=== PATIENT | female | born 1945 | race Caucasian/White ===

== ENCOUNTER 2020-05-19 20:14 | Emergency (ER) | payer MEDICARE, SELFPAY ==
[2020-05-19 20:19] VITALS: BP 208/82; PULSE 62; RESP 16; O2SAT 97
--- NOTE | 2020-05-19 20:29 | CTR_ITS ---
PROCEDURE INFORMATION: Exam: CT Head Without Contrast Exam date and time: 05/19/2020 8:54 PM Age: 74 years old Clinical indication: Injury or trauma; Fall; Blunt trauma (contusions or hematomas); Injury details: PT fell 4 x, bruising to lt orbit; Additional info: Falls TECHNIQUE: Imaging protocol: Computed tomography of the head without contrast. Radiation optimization: All CT scans at this facility use at least one of these dose optimization techniques: automated exposure control; mA and/or kV adjustment per patient size (includes targeted exams where dose is matched to clinical indication); or iterative reconstruction. COMPARISON: No relevant prior studies available. RADIATION DOSE METRICS: Total DLP (mGy-cm): 814.81 FINDINGS: Brain: No intracranial hemorrhage. There is mild cerebral atrophy. There is mild diffuse heterogeneity of the white matter attenuation, consistent with chronic white matter ischemic changes. No midline shift of brain. No intracranial mass. Chiu matter and white matter differentiation is preserved. Cerebral ventricles: No ventriculomegaly. Bones/joints: The no acute fractures. Paranasal sinuses: There is complete opacification of left maxillary sinus, left sphenoid sinus, left frontal sinus and most of the left ethmoid air cells. Mucoperiosteal thickening around the left maxillary sinus. Mastoid air cells: Visualized mastoid air cells are well aerated. Soft tissues: Small right posterior scalp hematoma. CT/CT head wo con* [id number] IMPRESSION: 1. Negative for acute intracranial injury. 2. Nonspecific diffuse left-sided paranasal sinus disease. 3. Small right posterior scalp hematoma. Radiation Dose CTDIVOL = (mGy): DLP = 814.81 (mGy-cm)
--- NOTE | 2020-05-19 20:29 | XRR_ITS ---
PROCEDURE INFORMATION: Exam: XR Left Humerus Exam date and time: 05/19/2020 8:31 PM Age: 74 years old Clinical indication: Injury or trauma; Blunt trauma (contusions or hematomas); Arm, upper; Left; Injury details: Multiple falls TECHNIQUE: Imaging protocol: XR Left humerus Views: 2 or more views. COMPARISON: No relevant prior studies available. FINDINGS: Bones/joints: Acute transversely oriented severely displaced overriding fracture of the humeral neck seen proximally. Osteoporosis. Moderate arthritis of acromioclavicular joint. Soft tissues: Soft tissues are not well assessed. XR/[place] [id number] IMPRESSION: Acute proximal left humeral neck fracture.
--- NOTE | 2020-05-19 20:30 | ECG_ITS ---
[facility] Test Date: 2020-05-19 Pat Name: Ana Butterfield Department: Room: Gender: Female Shield Operator: : 1945 Requested By: Rik Bell Order Number: [id number] Santa MD: Nikki Washington M.D. Measurements Intervals [place] Rate: 63 P: 43 [place]: 159 QRS: 6 QRSD: 94 T: 58 QT: 409 QTc: 419 Interpretive Statements SINUS RHYTHM LEFT VENTRICULAR HYPERTROPHY AND ST-T CHANGE [VOLTAGE CRITERIA PLUS ST/T ABNORMALITY] Compared to ECG 01/15/2019 06:36:45 ST (T wave) deviation now present Sinus bradycardia no longer present Electronically Signed On 05-19-2020 22:06:07 RECEIVING SPECIALIST by Nikki Washington M.D. [id number]
--- NOTE | 2020-05-19 20:32 | XRR_ITS ---
PROCEDURE INFORMATION: Exam: XR Left Ribs with PA Chest, 3 Views Exam date and time: 05/19/2020 8:45 PM Age: 74 years old Clinical indication: Injury or trauma; Rib area, left side; Blunt trauma; Injury details: Multiple falls; Additional info: Fall injury TECHNIQUE: Imaging protocol: XR Left ribs 3 views with PA chest. COMPARISON: No relevant prior studies available. FINDINGS: Lungs: Unremarkable. No consolidation. Pleural spaces: Unremarkable. No pleural effusion. No pneumothorax. Heart/Mediastinum: Unremarkable. No cardiomegaly. Bones/joints: Left proximal humeral neck fracture. Osteoporosis. No acute rib fractures identified. XR/XR ribs LT mn 3V w CXR1V [id number] IMPRESSION: 1. No acute pulmonary disease. 2. Left proximal humeral neck fracture.
--- NOTE | 2020-05-19 20:32 | ED_ITS ---
HPI - Fall General: Chief Complaint: Fall Stated Complaint: FALL Time Seen by Provider: 05/19/20 20:23 Source: patient Mode of arrival: ambulatory Limitations: no limitations History of Present Illness: HPI Narrative: 74-year-old female comes in today with injury symptoms were sustained from a fall on Friday. Spouse states that he has been unable to get the patient up today. Patient has had 3 other falls since the fall on Friday. Patient is alert and oriented. Patient appears well. Patient appears no acute distress. Patient is unable to lift left arm due to pain. Patient has obvious bruising and tenderness to the left shoulder area. No acute distress is noted. Review of Systems General: Reports: 10 or more systems reviewed and unremarkable except in HPI and below Musc: Reports: extremity pain Physical Exam Const: COMMON NORMALS: no acute distress and patient oriented x3 GENERAL APPEARANCE: cooperative HENMT: COMMON NORMALS: TM's normal bilaterally and Normal external nose present HEAD & SCALP: normal to inspection and other (Mild flattening to the labial fold on the left side of face.) NOSE: Normal external nose present TYMPANIC MEMBRANE: TM's normal bilaterally MOUTH: Normal oral and palatal mucosa present THROAT: posterior oropharynx normal Eye: GENERAL EYE: appearance normal, both eyes and all related structures Neck/C-Spine: COMMON NORMALS: full ROM Lymph: LYMPHATIC: no lymphadenopathy noted Chest: COMMONS NORMALS: normal inspection of the chest Resp: COMMON NORMALS: normal respiratory effort EFFORT & INSPECTION: Yes able to speak in complete sentences Cardio: COMMON NORMALS: regular rate and regular rhythm RATE: regular rate RHYTHM: regular rhythm GI: COMMON NORMALS: non-tender : COMMON NORMALS: Yes no CVA tenderness BLADDER/KIDNEY EXAM: Yes no CVA tenderness Back/Pelvis: COMMON NORMALS: no CVA tenderness and thoracic and lumbar spine normal to inspection Extremity: NARRATIVE EXTREMITY EXAM: Tenderness to the left shoulder area, ecchymosis is noted to the upper left arm, tenderness noted to left rib area. Neuro: COMMON NORMALS: patient oriented x3, moves all extremities and gait normal (Unable to assess due to generalized weakness.) Psych: COMMON NORMALS: mental status grossly normal and cooperative Skin: COMMON NORMALS: no rashes or lesions noted GENERAL SKIN EXAM: no rashes or lesions noted Course ED course: 1021, reviewed patient with Dr. Veliz. Discussed history of weakness over the last 2 weeks and frequent falls with 4 falls over the last 2 weeks. Review of labs note that patient has some chronic anemia, chronic kidney disease, and some elevation in her troponin. We believe the troponin elevation may be secondary to chronic kidney disease. Patient does have a fracture of the humeral neck. We will plan at this time to recheck troponin and consider released to home if patient is able to standing and transferring. Patient spouse does report the patient has had increased difficulty with standing due to weakness in the lower extremities. Vital Signs: Vital signs: Vital Signs Pulse Rate 66 05/19/20 23:46 Respiratory Rate 16 05/19/20 23:46 Blood Pressure 211/76 05/19/20 23:46 Pulse Oximetry 98 05/19/20 23:46 MDM - Fall MDM Narrative: Medical decision making narrative: Patient comes in for evaluation of a fall on Friday. Patient is also had some increasing weakness over the last 2 weeks. On exam patient has some ecchymosis and tenderness to the left upper arm. Patient has reduced motion to the arm due to pain. No obvious dislocation is noted. Patient also has some chest wall tenderness on the left side. Abdomen soft nontender. Skin is warm and dry. Patient also has some vertebral tenderness in the L1-L2 area of the spine. Differential diagnosis includes fracture, contusions, sprain, chronic kidney disease, deteriorating condition, ACS, stroke. CT of the head noted no acute abnormality. Chest x-ray with left ribs noted no fracture or acute respiratory illness. X-ray of the left humerus notes a neck fracture. CT of the lumbar and thoracic spine noted no acute fractures. Laboratory values noted some anemia, chronic kidney disease that was not significantly changed from previous labs done. Troponin at the 1 and 2-hour ian were unchanged. Feel the patient is weakness is probably due to her chronic kidney disease that is continuing to progress. Patient will need to follow-up with orthopedics regarding her fracture of the humerus. Patient was placed in a sling given medications for pain. Discussed with the need for follow-up with Dr. Morris regarding the patient's worsening weakness. Patient may have further decline of condition may need admission to senior living or long-term for strengthening. Patient and family both report understanding of care plan and need for follow-up or return to the ER. Lab Data: Labs: Lab Results 05/19/20 05/19/20 05/19/20 Range/Units 21:25 21:25 21:25 WBC 10.9 H (4.0-10.0) 10^3/ uL RBC 3.21 L (4.1-5.3) 10^6/u L Hgb 9.3 L (11.5-15.3) g/dL Hct 27.6 L (37.0-47.0) % MCV 86.0 (81-99) fL MCH 29.0 (28.0-34.0) pg MCHC 33.7 (30.0-36.0) g/dL RDW 13.2 (12.1-15.1) % Plt Count 286 (130-400) 10^3/c mm MPV 10.8 H (7.4-10.4) fL Neut % (Auto) 85.3 % Lymph % (Auto) 6.7 % Lake % (Auto) 6.3 % Eos % (Auto) 0.7 % Baso % (Auto) 0.5 % Neut # (Auto) 9.33 H (1.8-7.7) 10^3/u L Lymph # (Auto) 0.7 L (0.8-4.8) 10^3/u L Lake # (Auto) 0.7 (0.2-0.9) 10^3/u L Eos # (Auto) 0.1 (0.0-0.8) 10^3/u L Baso # (Auto) 0.1 (0.0-0.1) 10^3/u L Nucleated RBC % (a uto) 0 % Nucleated RBCs # 0.0 /100WBC Sodium 130 L (136-145) mmol/L Potassium 4.0 (3.5-5.1) mmol/L Chloride 90 L (98-107) mmol/L Carbon Dioxide 24 (22-29) mmol/L Anion Gap 20.0 H (5-19) BUN 44 H (8-23) mg/dL Creatinine 1.8 H (0.5-0.9) mg/dL GFR Calculation Not Reportable Glucose 123 H (65-115) mg/dL Calculated Osmolal ity 283 L (285-295) mOsm/k g Calcium 9.5 (8.5-10.5) mg/dL Magnesium 1.6 L (1.7-2.3) mg/dL Total Bilirubin 0.3 (0.15-1.2) mg/dL AST 19 (0-32) U/L ALT 14 (0-33) U/L Alkaline Phosphata se 102 (35-105) IU/L Troponin T Baselin e 49 H (0-10) ng/L Troponin T 120 Min viejas (0-10) ng/L Delta Troponin T (0-10) ABS# Total Protein 6.4 L (6.6-8.7) g/dL Albumin 4.1 (3.5-5.2) g/dL Globulin 2.3 (1.3-4.6) g/dL Urine Color (Yellow) Urine Appearance (CLEAR) Urine pH (5-7) Ur Specific Gravit y (1.005-1.030) Urine Protein (Negative) Urine Glucose (UA) (Normal) Urine Ketones (Negative) Urine Blood (Negative) Urine Nitrate (Negative) Urine Bilirubin (Negative) Urine Urobilinogen (Negative) mg/dL Ur Leukocyte Amber ase (Negative) Urine RBC (0-2) /hpf Urine WBC (0-5) /hpf Ur Squamous Epith Cells (0-5) /hpf Amorphous Sediment Urine Bacteria (NONE) /hpf 05/19/20 05/19/20 Range/Units 23:04 23:48 WBC (4.0-10.0) 10^3/ uL RBC (4.1-5.3) 10^6/u L Hgb (11.5-15.3) g/dL Hct (37.0-47.0) % MCV (81-99) fL MCH (28.0-34.0) pg MCHC (30.0-36.0) g/dL RDW (12.1-15.1) % Plt Count (130-400) 10^3/c mm MPV (7.4-10.4) fL Neut % (Auto) % Lymph % (Auto) % Lake % (Auto) % Eos % (Auto) % Baso % (Auto) % Neut # (Auto) (1.8-7.7) 10^3/u L Lymph # (Auto) (0.8-4.8) 10^3/u L Lake # (Auto) (0.2-0.9) 10^3/u L Eos # (Auto) (0.0-0.8) 10^3/u L Baso # (Auto) (0.0-0.1) 10^3/u L Nucleated RBC % (a uto) % Nucleated RBCs # /100WBC Sodium (136-145) mmol/L Potassium (3.5-5.1) mmol/L Chloride (98-107) mmol/L Carbon Dioxide (22-29) mmol/L Anion Gap (5-19) BUN (8-23) mg/dL Creatinine (0.5-0.9) mg/dL GFR Calculation Glucose (65-115) mg/dL Calculated Osmolal ity (285-295) mOsm/k g Calcium (8.5-10.5) mg/dL Magnesium (1.7-2.3) mg/dL Total Bilirubin (0.15-1.2) mg/dL AST (0-32) U/L ALT (0-33) U/L Alkaline Phosphata se (35-105) IU/L Troponin T Baselin e (0-10) ng/L Troponin T 120 Min viejas 45.10 H (0-10) ng/L Delta Troponin T -3.90 L (0-10) ABS# Total Protein (6.6-8.7) g/dL Albumin (3.5-5.2) g/dL Globulin (1.3-4.6) g/dL Urine Color Yellow (Yellow) Urine Appearance Clear (CLEAR) Urine pH 5 (5-7) Ur Specific Gravit y 1.010 (1.005-1.030) Urine Protein 2+ H (Negative) Urine Glucose (UA) Norm (Normal) Urine Ketones Negative (Negative) Urine Blood 2+ H (Negative) Urine Nitrate Negative (Negative) Urine Bilirubin Neg (Negative) Urine Urobilinogen Norm (Negative) mg/dL Ur Leukocyte Amber ase Negative (Negative) Urine RBC 0-4 H (0-2) /hpf Urine WBC 15-25 H (0-5) /hpf Ur Squamous Epith Cells 5-10 H (0-5) /hpf Amorphous Sediment Not Reportable Urine Bacteria Trace (NONE) /hpf EKG Data^: EKG 1: Attestation: I personally reviewed and interpreted this EKG as follows: (2120, EKG shows sinus rhythm without any ST elevation or ectopy. Computer reads some left ventricular hypertrophy. No prior exam is available immediately for comparison.) Discharge Plan Discharge Patient Disposition: Home Clinical Impression: Fracture of humerus neck Qualifiers: Encounter type: initial encounter Fracture type: closed Laterality: left Qualified Code(s): S42.212A - Unspecified displaced fracture of surgical neck of left humerus, initial encounter for closed fracture CKD (chronic kidney disease) Qualifiers: Chronic kidney disease stage: unspecified stage Qualified Code(s): N18.9 - Chronic kidney disease, unspecified Condition: Stable Prescriptions: [place] 5-325 mg tablet 1 tab PO Q6H PRN (Reason: pain) Qty: 14 RF: 0 No Action furosemide 40 mg tablet 40 mg PO DAILY@1000 RF: 0 naproxen 375 mg tablet 375 mg PO TID PRN (Reason: Pain) RF: 0 metoprolol tartrate 100 mg tablet 100 mg PO BID@1000,1700 RF: 0 triamcinolone acetonide 0.1 % cream See Rx Instructions .ROUTE .COMPLEX RF: 0 potassium chloride 20 mEq tablet,ER particles/crystals 20 meq PO BID@1000,1700 RF: 0 gabapentin 800 mg tablet 800 mg PO DAILY@1000,1700 RF: 0 pantoprazole 40 mg tablet,delayed release (DR/EC) 40 mg PO DAILY@1000 RF: 0 betamethasone dipropionate 0.05 % Cream See Rx Instructions .ROUTE .COMPLEX RF: 0 lisinopril-hydrochlorothiazide 20-25 mg tablet 1 tab PO DAILY@1000 RF: 0 bupropion HCl 150 mg tablet extended release 24 hr 150 mg PO DAILY@1000 RF: 0 Prevagan See Rx Instructions .ROUTE .COMPLEX RF: 0 Discharge Orders: Discharge ED (Routine); Ordered 05/20/20 Ordered By: Rik Gonzalez Referrals: Víctor Morris MD [Primary Care Provider] - Discharge Diet: Usual diet Discharge Activity: Increase activity as tolerated Activity Restrictions/Additional Instructions: Sling left arm for comfort. Activity as tolerated. Continue with routine medications as directed. Follow-up with primary care as needed. Follow-up with orthopedist for further care of fracture of the arm. Return to the emergency department for new concerns. Coding Level of Care Code ED Employment Case Manager for Lillian Cabrera Exam Comprehensive
[2020-05-19 21:19] VITALS: BP 221/71; PULSE 63; RESP 16; O2SAT 99
[2020-05-19 21:32] LABS: Basophils # 0.1 10^3/uL (0.0-0.1); Basophils % 0.5 %; Eosinophils # 0.1 10^3/uL (0.0-0.8); Eosinophils % 0.7 %; Hematocrit 27.6 % (37.0-47.0); Hemoglobin 9.3 g/dL (11.5-15.3); Lymphocytes # 0.7 10^3/uL (0.8-4.8); Lymphocytes % 6.7 %; Mean Corpuscular HGB Conc 33.7 g/dL (30.0-36.0); Mean Platelet Volume 10.8 fL (7.4-10.4); Monocytes # 0.7 10^3/uL (0.2-0.9); Monocytes % 6.3 %; Neutrophils # 9.33 10^3/uL (1.8-7.7); Neutrophils % 85.3 %; Nucleated Red Blood Cells % 0 %; Platelet Count 286 10^3/cmm (130-400); Red Blood Count 3.21 10^6/uL (4.1-5.3); Red Cell Distribution Width 13.2 % (12.1-15.1); White Blood Count 10.9 10^3/uL (4.0-10.0)
[2020-05-19 21:52] LABS: Alanine Aminotransferase 14 U/L (0-33); Albumin Level 4.1 g/dL (3.5-5.2); Alkaline Phosphatase 102 IU/L (35-105); Aspartate Amino Transferase 19 U/L (0-32); Blood Urea Nitrogen 44 mg/dL (8-23); Calcium 9.5 mg/dL (8.5-10.5); Carbon Dioxide 24 mmol/L (22-29); Chloride 90 mmol/L (98-107); Globulin 2.3 g/dL (1.3-4.6); Glucose 123 mg/dL (65-115); Magnesium 1.6 mg/dL (1.7-2.3); Osmolality Calculated 283 mOsm/kg (285-295); Sodium 130 mmol/L (136-145); Total Bilirubin 0.3 mg/dL (0.15-1.2); Total Protein 6.4 g/dL (6.6-8.7)
[2020-05-19 21:54] LABS: Troponin(5th) Baseline 49 ng/L (0-10)
[2020-05-19] MEDS: sodium chloride 0.9% 500 ML 999 ML IV (22:37)
[2020-05-19] MEDS: ondansetron 2 mg/ML SDV 2 mL 4 MG IVP (22:37)
[2020-05-19] MEDS: morphine 4 mg/mL SDV 1 mL IVP (22:37)
--- NOTE | 2020-05-19 22:40 | CTR_ITS ---
PROCEDURE INFORMATION: Exam: CT Thoracic Spine Without Contrast Exam date and time: 05/19/2020 10:48 PM Age: 74 years old Clinical indication: Injury or trauma; Blunt trauma (contusions or hematomas); Patient HX: Multiple falls. C/O back pain with leg weakness. ; Additional info: Fall, lower ext weakness TECHNIQUE: Imaging protocol: Computed tomography images of the thoracic spine without contrast. Radiation optimization: All CT scans at this facility use at least one of these dose optimization techniques: automated exposure control; mA and/or kV adjustment per patient size (includes targeted exams where dose is matched to clinical indication); or iterative reconstruction. COMPARISON: No relevant prior studies available. RADIATION DOSE METRICS: Total DLP (mGy-cm): 1538.14 FINDINGS: Vertebrae: No acute fracture. Normal alignment. Diffuse osseous demineralization.The thoracic spine demonstrates moderate degenerative changes at multiple levels. Discs/Spinal canal/Neural foramina: No significant disc protrusion. No severe spinal canal stenosis. No significant neural foraminal narrowing. Soft tissues: No paraspinal soft tissue hematoma. Vasculature: Moderate atherosclerosis of thoracic aorta without aneurysm. Central pulmonary arteries are mildly dilated. Lungs: Mild emphysema. Mediastinum: Granulomas in the mediastinum. Gallbladder and bile ducts: Cholecystectomy. CT/CT thoracic spin wo con* [id number] IMPRESSION: No acute thoracic spine fracture identified. Radiation Dose CTDIVOL = (mGy): DLP = 1538.14 (mGy-cm)
--- NOTE | 2020-05-19 22:40 | CTR_ITS ---
PROCEDURE INFORMATION: Exam: CT Lumbar Spine Without Contrast Exam date and time: 05/19/2020 10:48 PM Age: 74 years old Clinical indication: Injury or trauma; Blunt trauma (contusions or hematomas); Patient HX: Multiple falls. C/O back pain with leg weakness. ; Additional info: Fall, leg weakness TECHNIQUE: Imaging protocol: Computed tomography images of the lumbar spine without contrast. Radiation optimization: All CT scans at this facility use at least one of these dose optimization techniques: automated exposure control; mA and/or kV adjustment per patient size (includes targeted exams where dose is matched to clinical indication); or iterative reconstruction. COMPARISON: No relevant prior studies available. RADIATION DOSE METRICS: Total DLP (mGy-cm): 1987.4 FINDINGS: Vertebrae: Inferior vertebral endplate fracture and diffuse cortical irregularity of the L1 level appears nonacute. Lumbar spinal alignment is unremarkable. The lumbar spine demonstrates moderate discogenic and apophyseal joint degenerative changes at multiple levels. There are nonspecific erosive changes involving bilateral facet joints at L4-L5 and L5-S1. Facet joint alignment is unremarkable. Partial visualization of a surgical staple line in the distal colon. Mild leftward convex lower lumbar spine curvature. Other bones/joints: Bones are diffusely demineralized. Vasculature: Moderate atherosclerosis of abdominal aorta without aneurysm. Soft tissues: No paraspinal soft tissue hematoma. Other findings: No retroperitoneal hematoma. CT/CT lumbar spine wo con* [id number] IMPRESSION: No acute lumbar spine fracture identified. Radiation Dose CTDIVOL = (mGy): DLP = 1988.4 (mGy-cm)
[2020-05-19 23:46] VITALS: BP 211/76; PULSE 66; RESP 16; O2SAT 98
[2020-05-20 00:12] LABS: Protein Urine 2+ (Negative); Urine Appearance Clear (CLEAR); Urine Color Yellow (Yellow); pH Urine 5 (5-7)
[2020-05-20 00:13] LABS: Add Urine Microscopic? YES; Bilirubin Urine Neg (Negative); Blood Urine 2+ (Negative); Glucose Urine UA Norm (Normal); Ketones Urine Negative (Negative); Leukocyte Esterase Urine Negative (Negative); Nitrate Urine Negative (Negative); Urobilinogen Urine Norm (Negative)
[2020-05-20 00:23] LABS: Add Urine Culture? Yes; Bacteria Urine TRACE /hpf; RBC Urine 0-4 /hpf (0-2); WBC Urine 15-25 /hpf (0-5)
[2020-05-20 02:08] VITALS: BP 186/94; PULSE 84; RESP 20; O2SAT 98
--- NOTE | 2020-05-22 10:19 | DCPLANNER ---
route service manager had message to schedule a follow up appointment for patient with ortho. route service manager called the ortho clinic, spoke with Callie, gave clinic patients information. route service manager was told that patients information would be printed and reviewed. Clinic will call patient with appointment information.
--- NOTE | 2020-05-23 12:09 | DCPLANNER ---
Patient has a follow up appointment scheduled for Sunday, May 24, 2020 at 3:[address] Monique. Clinic will call patient with appointment information.
--- NOTE | 2020-06-28 14:55 | DCPLANNER ---
Patient had a follow up appointment scheduled for 05.24.[address] Monique at [facility] - patient attended the appointment.
== END 2020-05-20 01:20 | disposition home or self-care (01) ==
PROVIDERS: Emergency Provider Nurse Practitioner Family; PCP Family Medicine
DX: S42.212A Unspecified displaced fracture of surgical neck of left humerus, initial encounter for closed fracture (principal); N18.9 Chronic kidney disease, unspecified; W19.XXXA Unspecified fall, initial encounter; Z79.899 Other long term (current) drug therapy
CPT/HCPCS: 12345; 36415; 70450; 71101; 72128; 72131; 73060; 80053; 81001; 81003; 83735; 84484; 85025; 87086; 93005; 96374; 96375; 99283; J2270; J2405; J7040

== ENCOUNTER → 2020-05-24 15:53 | Outpatient (BNVA) | payer MEDICARE, SELFPAY | PROVIDERS: PCP Family Medicine; Referring Provider Family Medicine; Visit Provider Specialist | DX: S42.212A Unspecified displaced fracture of surgical neck of left humerus, initial encounter for closed fracture (principal); W19.XXXA Unspecified fall, initial encounter | CPT/HCPCS: 73030 ==

== ENCOUNTER → 2020-06-14 15:09 | Outpatient (BNVA) | payer MEDICARE, SELFPAY | PROVIDERS: PCP Family Medicine; Visit Provider Specialist | DX: S42.212D Unspecified displaced fracture of surgical neck of left humerus, subsequent encounter for fracture with routine healing (principal); X58.XXXD Exposure to other specified factors, subsequent encounter | CPT/HCPCS: 73030 ==

== ENCOUNTER → 2020-07-12 14:54 | Outpatient (BNVA) | payer MEDICARE, SELFPAY | PROVIDERS: PCP Family Medicine; Visit Provider Specialist | DX: S42.212D Unspecified displaced fracture of surgical neck of left humerus, subsequent encounter for fracture with routine healing (principal); W18.39XD Other fall on same level, subsequent encounter | CPT/HCPCS: 73030 ==

== ENCOUNTER 2020-07-23 09:18 | Emergency (ER) | payer MEDICARE, SELFPAY ==
[2020-07-23 09:20] VITALS: BP 196/75; PULSE 59; RESP 19; TEMP 36.4; O2SAT 97; BMI 24.5
--- NOTE | 2020-07-23 09:24 | ECG_ITS ---
[facility] Test Date: 2020-07-23 Pat Name: Ana Butterfield Department: Room: Gender: Female Patient Admitting Representative: : 1945 Requested By: Edel Longo Order Number: [id number] Arina MD: Michael Richards M.D. Measurements Intervals [place] Rate: 63 P: 33 NM: 162 QRS: -5 QRSD: 90 T: 43 QT: 401 QTc: 413 Interpretive Statements SINUS RHYTHM MINIMAL VOLTAGE CRITERIA FOR LVH, CONSIDER NORMAL VARIANT [MEETS CRITERIA IN ONE OF: R(aVL), S(V1), R(V5), R(V5/V6)+S(V1)] MINIMAL ST DEPRESSION [0.025+ mV ST DEPRESSION] INTERPRETATION BASED ON A DEFAULT AGE OF 40 YEARS Compared to ECG 05/19/2020 21:14:05 No significant changes Electronically Signed On 07-23-2020 22:47:21 CDT by Michael Richards M.D. [id number]
--- NOTE | 2020-07-23 09:28 | ED_ITS ---
HPI - Weakness General: Chief complaint: Weakness Stated complaint: weakness, fall from bed Time Seen by Provider: 07/23/20 09:18 Source: patient and family Mode of arrival: EMS Limitations: no limitations History of Present Illness: HPI Narrative: 74-year-old female with a history of hypertension, frequent falls, was feeling weak this morning after getting up to go to the bathroom. She collapsed trying to get back to bed, and seemed confused, so her brought her here to be evaluated. She has had frequent falls, often feels dizzy and weak when she ambulates. Recently she fell and fractured her left humerus. Denies pain, shortness of breath, nausea or vomiting, just states that she feels tired and weak in general. No recent fever. No sick contacts. Decreased appetite. MD Complaint: generalized weakness, lack of energy and difficulty walking Onset (ago): day(s) Duration: intermittent Location: generalized Associated symptoms: Reports confusion, decreased appetite and syncope; Denies chest pain, chills, melena, diaphoresis, dysuria, fever(s), headache(s), myalgias, nausea, short of breath or vomiting Review of Systems General: Reports: 10 or more systems reviewed and unremarkable except in HPI and below Const: Reports: change in appetite, fatigue and malaise; Denies: fever(s), chills, body aches or diaphoresis Eyes: Denies: change in vision, blurry vision or blind spots ENMT: Denies: odynophagia or oral sores Card: Reports: lightheadedness and syncope; Denies: chest pain, palpitations, irregular heart rhythm or edema Resp: Reports: wheezing and chest congestion; Denies: dyspnea or productive cough GI: Denies: abdominal pain, nausea, vomiting or melena : Denies: difficulty voiding, dysuria or urinary frequency Musc: Denies: neck pain, joint swelling or joint redness Skin/Breast: Reports: sores Neuro: Reports: difficulty walking, frequent falls, dizziness and confusion; Denies: headache(s) or seizure-like activity Physical Exam Const: COMMON NORMALS: no acute distress, alert and well nourished GENERAL APPEARANCE: cooperative, comfortable and frail appearing; not in distress, not anxious, not ill appearing and not diaphoretic NUTRITIONAL APPEARANCE: not cachectic ORIENTATION/CONSCIOUSNESS: Yes awake, Yes oriented to person and Yes oriented to place HENMT: COMMON NORMALS: normocephalic and atraumatic HEAD & SCALP: normal to inspection, normocephalic and atraumatic FACE & SINUS: normal facial exam, sinuses nontender and face symmetric; no sinus tenderness and no Flattened naso-labial fold present Eye: COMMON NORMALS: Equal, round and reactive pupils present, EOMs intact bilaterally, conjunctivae normal and negative for no scleral icterus GENERAL EYE: appearance normal, both eyes and all related structures ALIGNMENT: Yes alignment normal PERIORBITAL: periorbital findings normal EYELID: eyelids normal CONJUNCTIVA: Yes conjunctivae normal PUPIL: Yes Equal, round and reactive pupils present EOM: No EOM abnormal Neck/C-Spine: COMMON NORMALS: full ROM, no lymphadenopathy and no JVD Chest: COMMONS NORMALS: normal inspection of the chest and normal palpation of entire chest wall Resp: COMMON NORMALS: normal respiratory effort, No retractions and No use of accessory muscles EFFORT & INSPECTION: Yes Actively coughing productive, loose and rattling and No uses accessory muscles Cardio: COMMON NORMALS: no JVD, regular rate, regular rhythm and S2 normal heart sound present RATE: regular rate RHYTHM: regular rhythm HEART SOUNDS: S2 normal heart sound present Neuro: SENSORIUM/ORIENTATION: Yes oriented to person and Yes oriented to place CRANIAL NERVES: Yes CN normal except as noted SPEECH: speech normal MOTOR EXAM: Pronator motor function not present, no tremor noted, Motor fasciculations not present and Normal motor muscle tone present throughout Course Vital Signs: Vital signs: Vital Signs Temperature 97.6 F 07/23/20 09:20 Pulse Rate 63 07/23/20 13:37 Respiratory Rate 20 H 07/23/20 13:37 Blood Pressure 190/97 07/23/20 13:37 Pulse Oximetry 97 07/23/20 13:37 MDM - Weakness MDM Narrative: Medical decision making narrative: 74-year-old female with generalized malaise, weakness, after using the bathroom this morning. She was bradycardic on arrival here, heart rate slowly improved to the 60s, with continued hypertension. CBC and chemistry stable. No ischemic changes on EKG. Chest x-ray without any acute infiltrates, effusions . Serial troponins stable. No acute UTI. I am recommending that she decrease her metoprolol to 50 mg twice a day instead of 100 mg. She may be experiencing symptomatic bradycardia early in the morning. Her blood pressure is elevated at this time, however she has not taken her morning medication yet, so I am not going to add any new antihypertensive at this time, she is to follow-up with her PCP with a blood pressure log so that they can determine if she needs additional medication coverage. Differential Diagnosis: Weakness Differential Diagnosis: Likely acute myocardial infarction, anemia, rhabdomyolysis and sepsis Medical Records: Attestation: I reviewed the patient's medical records. Lab Data: Attestation: I reviewed the patient's lab results. Labs: Lab Results 07/23/20 07/23/20 07/23/20 Range/Units 09:00 09:00 09:00 WBC 6.2 (4.0-10.0) 10^3/ uL RBC 3.21 L (4.1-5.3) 10^6/u L Hgb 9.3 L (11.5-15.3) g/dL Hct 28.6 L (37.0-47.0) % MCV 89.1 (81-99) fL MCH 29.0 (28.0-34.0) pg MCHC 32.5 (30.0-36.0) g/dL RDW 13.1 (12.1-15.1) % Plt Count 361 (130-400) 10^3/c mm MPV 10.2 (7.4-10.4) fL Neut % (Auto) 69.1 % Lymph % (Auto) 12.6 % [place] % (Auto) 6.1 % Eos % (Auto) 9.8 % Baso % (Auto) 1.8 % Neut # (Auto) 4.28 (1.8-7.7) 10^3/u L Lymph # (Auto) 0.8 (0.8-4.8) 10^3/u L [place] # (Auto) 0.4 (0.2-0.9) 10^3/u L Eos # (Auto) 0.6 (0.0-0.8) 10^3/u L Baso # (Auto) 0.1 (0.0-0.1) 10^3/u L Nucleated RBC % (a uto) 0 % Nucleated RBCs # 0.0 /100WBC Specimen Type Sample Site ABG pH (7.35-7.45) ABG pCO2 (35-45) mmHg ABG pO2 (80.0-100.0) mmH g ABG HCO3 (22-26) mmol/L ABG O2 Saturation ABG Base Excess (-2.0-2.0) mmol/ L Lyndon Test A-a O2 Gradient (5-10) mmHg Hematocrit (37-47) % Hgb O2 Saturation (95-100) % Carboxyhemoglobin (0.4-20.1) %THgb Methemoglobin (0.4-1.5) % Total Hemoglobin (12-16) g/dL Ionized Calcium (1.1-1.4) mmol/L O2 Delivery Device FiO2 % Chemical Mixer ID Sodium 130 L (136-145) mmol/L Potassium 5.0 (3.5-5.1) mmol/L Chloride 96 L (98-107) mmol/L Carbon Dioxide 23 (22-29) mmol/L Anion Gap 16.0 (5-19) BUN 56 H (8-23) mg/dL Creatinine 1.9 H (0.5-0.9) mg/dL GFR Calculation Not Reportable Glucose 118 H (65-115) mg/dL Calculated Osmolal ity 287 (285-295) mOsm/k g Calcium 9.5 (8.5-10.5) mg/dL Magnesium 1.6 L (1.7-2.3) mg/dL Total Bilirubin 0.2 (0.15-1.2) mg/dL AST 15 (0-32) U/L ALT 8 (0-33) U/L Alkaline Phosphata se 100 (35-105) IU/L Troponin T Gen 5 n g/L 51 H (0-10) ng/L Troponin T 120 Min [place] (0-10) ng/L Delta Troponin T (0-10) ABS# NT-Pro-B Natriuret Pep (0-125) pg/mL Total Protein 5.8 L (6.6-8.7) g/dL Albumin 3.7 (3.5-5.2) g/dL Globulin 2.1 (1.3-4.6) g/dL Urine Color (Yellow) Urine Appearance (CLEAR) Urine pH (5-7) Ur Specific Gravit y (1.005-1.030) Urine Protein (Negative) Urine Glucose (UA) (Normal) Urine Ketones (Negative) Urine Blood (Negative) Urine Nitrate (Negative) Urine Bilirubin (Negative) Urine Urobilinogen (Negative) mg/dL Ur Leukocyte Amber ase (Negative) Urine RBC (0-2) /hpf Urine WBC (0-5) /hpf Ur Squamous Epith Cells (0-5) /hpf Amorphous Sediment Urine Bacteria (NONE) /hpf Urine Mucus /hpf 07/23/20 07/23/20 07/23/20 Range/Units 09:00 10:11 10:13 WBC (4.0-10.0) 10^3/ uL RBC (4.1-5.3) 10^6/u L Hgb (11.5-15.3) g/dL Hct (37.0-47.0) % MCV (81-99) fL MCH (28.0-34.0) pg MCHC (30.0-36.0) g/dL RDW (12.1-15.1) % Plt Count (130-400) 10^3/c mm MPV (7.4-10.4) fL Neut % (Auto) % Lymph % (Auto) % [place] % (Auto) % Eos % (Auto) % Baso % (Auto) % Neut # (Auto) (1.8-7.7) 10^3/u L Lymph # (Auto) (0.8-4.8) 10^3/u L [place] # (Auto) (0.2-0.9) 10^3/u L Eos # (Auto) (0.0-0.8) 10^3/u L Baso # (Auto) (0.0-0.1) 10^3/u L Nucleated RBC % (a uto) % Nucleated RBCs # /100WBC Specimen Type Arterial Sample Site Brachial, right ABG pH 7.36 (7.35-7.45) ABG pCO2 45.3 H (35-45) mmHg ABG pO2 57.0 L (80.0-100.0) mmH g ABG HCO3 25.6 (22-26) mmol/L ABG O2 Saturation 90.0 ABG Base Excess 0.0 (-2.0-2.0) mmol/ L Lyndon Test N/a A-a O2 Gradient 5.0 (5-10) mmHg Hematocrit 30.0 L (37-47) % Hgb O2 Saturation 88.3 L (95-100) % Carboxyhemoglobin 1.0 (0.4-20.1) %THgb Methemoglobin 0.8 (0.4-1.5) % Total Hemoglobin 9.8 L (12-16) g/dL Ionized Calcium 1.3 (1.1-1.4) mmol/L O2 Delivery Device Room air FiO2 21.0 % Chemical Mixer ID Amh Sodium 133.0 (136-145) mmol/L Potassium 4.7 (3.5-5.1) mmol/L Chloride (98-107) mmol/L Carbon Dioxide (22-29) mmol/L Anion Gap (5-19) BUN (8-23) mg/dL Creatinine (0.5-0.9) mg/dL GFR Calculation Glucose 118.0 H (65-115) mg/dL Calculated Osmolal ity (285-295) mOsm/k g Calcium (8.5-10.5) mg/dL Magnesium (1.7-2.3) mg/dL Total Bilirubin (0.15-1.2) mg/dL AST (0-32) U/L ALT (0-33) U/L Alkaline Phosphata se (35-105) IU/L Troponin T Gen 5 n g/L (0-10) ng/L Troponin T 120 Min [place] (0-10) ng/L Delta Troponin T (0-10) ABS# NT-Pro-B Natriuret Pep 2932 H (0-125) pg/mL Total Protein (6.6-8.7) g/dL Albumin (3.5-5.2) g/dL Globulin (1.3-4.6) g/dL Urine Color Yellow (Yellow) Urine Appearance Clear (CLEAR) Urine pH 6 (5-7) Ur Specific Gravit y 1.010 (1.005-1.030) Urine Protein 1+ H (Negative) Urine Glucose (UA) Norm (Normal) Urine Ketones Negative (Negative) Urine Blood Neg (Negative) Urine Nitrate Negative (Negative) Urine Bilirubin Neg (Negative) Urine Urobilinogen Norm (Negative) mg/dL Ur Leukocyte Amber ase Negative (Negative) Urine RBC None (0-2) /hpf Urine WBC None (0-5) /hpf Ur Squamous Epith Cells 5-10 H (0-5) /hpf Amorphous Sediment Not Reportable Urine Bacteria Trace (NONE) /hpf Urine Mucus 1+ /hpf 07/23/20 Range/Units 11:25 WBC (4.0-10.0) 10^3/ uL RBC (4.1-5.3) 10^6/u L Hgb (11.5-15.3) g/dL Hct (37.0-47.0) % MCV (81-99) fL MCH (28.0-34.0) pg MCHC (30.0-36.0) g/dL RDW (12.1-15.1) % Plt Count (130-400) 10^3/c mm MPV (7.4-10.4) fL Neut % (Auto) % Lymph % (Auto) % [place] % (Auto) % Eos % (Auto) % Baso % (Auto) % Neut # (Auto) (1.8-7.7) 10^3/u L Lymph # (Auto) (0.8-4.8) 10^3/u L [place] # (Auto) (0.2-0.9) 10^3/u L Eos # (Auto) (0.0-0.8) 10^3/u L Baso # (Auto) (0.0-0.1) 10^3/u L Nucleated RBC % (a uto) % Nucleated RBCs # /100WBC Specimen Type Sample Site ABG pH (7.35-7.45) ABG pCO2 (35-45) mmHg ABG pO2 (80.0-100.0) mmH g ABG HCO3 (22-26) mmol/L ABG O2 Saturation ABG Base Excess (-2.0-2.0) mmol/ L Lyndon Test A-a O2 Gradient (5-10) mmHg Hematocrit (37-47) % Hgb O2 Saturation (95-100) % Carboxyhemoglobin (0.4-20.1) %THgb Methemoglobin (0.4-1.5) % Total Hemoglobin (12-16) g/dL Ionized Calcium (1.1-1.4) mmol/L O2 Delivery Device FiO2 % Chemical Mixer ID Sodium (136-145) mmol/L Potassium (3.5-5.1) mmol/L Chloride (98-107) mmol/L Carbon Dioxide (22-29) mmol/L Anion Gap (5-19) BUN (8-23) mg/dL Creatinine (0.5-0.9) mg/dL GFR Calculation Glucose (65-115) mg/dL Calculated Osmolal ity (285-295) mOsm/k g Calcium (8.5-10.5) mg/dL Magnesium (1.7-2.3) mg/dL Total Bilirubin (0.15-1.2) mg/dL AST (0-32) U/L ALT (0-33) U/L Alkaline Phosphata se (35-105) IU/L Troponin T Gen 5 n g/L (0-10) ng/L Troponin T 120 Min [place] 50.83 H (0-10) ng/L Delta Troponin T -0.17 L (0-10) ABS# NT-Pro-B Natriuret Pep (0-125) pg/mL Total Protein (6.6-8.7) g/dL Albumin (3.5-5.2) g/dL Globulin (1.3-4.6) g/dL Urine Color (Yellow) Urine Appearance (CLEAR) Urine pH (5-7) Ur Specific Gravit y (1.005-1.030) Urine Protein (Negative) Urine Glucose (UA) (Normal) Urine Ketones (Negative) Urine Blood (Negative) Urine Nitrate (Negative) Urine Bilirubin (Negative) Urine Urobilinogen (Negative) mg/dL Ur Leukocyte Amber ase (Negative) Urine RBC (0-2) /hpf Urine WBC (0-5) /hpf Ur Squamous Epith Cells (0-5) /hpf Amorphous Sediment Urine Bacteria (NONE) /hpf Urine Mucus /hpf Discharge Plan Discharge Patient Disposition: Home Clinical Impression: Falls frequently, Weakness generalized, Malaise and fatigue, Poor appetite Fall Qualifiers: Encounter type: subsequent encounter Qualified Code(s): W19.XXXD - Unspecified fall, subsequent encounter Anemia Qualifiers: Anemia type: due to chronic kidney disease Chronic kidney disease stage: unspecified stage Qualified Code(s): N18.9 - Chronic kidney disease, unspecified Condition: Stable Prescriptions: New metoprolol tartrate 50 mg tablet 50 mg PO BID Qty: 30 RF: 0 Discontinued metoprolol tartrate 100 mg tablet 100 mg PO BID@1000,1700 RF: 0 gabapentin 800 mg tablet 800 mg PO QID RF: 0 No Action (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) 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 See Rx Instructions .Route .MEDSUPPLY Qty: 1 RF: 0 furosemide 40 mg tablet 40 mg PO DAILY@1000 RF: 0 naproxen 375 mg tablet 375 mg PO TID PRN (Reason: Pain) RF: 0 triamcinolone acetonide 0.1 % cream See Rx Instructions .ROUTE .COMPLEX RF: 0 potassium chloride 20 mEq tablet,ER particles/crystals 20 meq PO BID@1000,1700 RF: 0 pantoprazole 40 mg tablet,delayed release (DR/EC) 40 mg PO DAILY@1000 RF: 0 betamethasone dipropionate 0.05 % Cream See Rx Instructions .ROUTE .COMPLEX RF: 0 lisinopril-hydrochlorothiazide 20-25 mg tablet 1 tab PO DAILY@1000 RF: 0 bupropion HCl 150 mg tablet extended release 24 hr 150 mg PO DAILY@1000 RF: 0 Prevagan 1 tab PO DAILY RF: 0 Discharge Orders: Discharge ED (Routine); Ordered 07/23/20 Ordered By: Edel Longo Referrals: Víctor Morris MD [Primary Care Provider] - Discharge Diet: Advance as tolerated Discharge Activity: Increase activity as tolerated Patient Instructions: Fall Prevention for Older Adults (ED) Activity Restrictions/Additional Instructions: Call to schedule follow-up appoint with your primary care doctor in the next 3 days to discuss medication changes. Decrease metoprolol to 50 mg twice daily Decrease gabapentin to 800 mg twice daily. Return immediately to the ER if you have worsening symptoms, chest pain, difficulty breathing, nausea, vomiting, or any other concerning changes. Coding Level of Care Code ED Motion Picture Director for Lillian Fwd Exam Detailed
[2020-07-23 09:36] VITALS: O2SAT 100
--- NOTE | 2020-07-23 09:46 | XRR_ITS ---
PROCEDURE INFORMATION: Exam: XR Chest Exam date and time: 07/23/2020 9:40 AM Age: 74 years old Clinical indication: Cough and other: Weakness; Additional info: Cough, altered mental status TECHNIQUE: Imaging protocol: XR of the chest Views: Frontal portable upright view of the chest. COMPARISON: CR XR ribs LT mn 3V w CXR1V [id number] 05/19/2020 8:32 PM FINDINGS: Tubes, catheters and devices: EKG leads are present overlying the chest. Lungs: The lungs are clear bilaterally. The pulmonary vasculature is normal. Pleural spaces: No pleural effusion. No pneumothorax. Heart/Mediastinum: The heart is normal in size and contour. Mediastinum: Stable. Bones/joints: Leftward lumbar spinal curvature. Organs: The gallbladder is likely surgically absent, with metallic clips overlying the gallbladder fossa. XR/XR chest 1V portable [id number] IMPRESSION: 1. No acute cardiopulmonary abnormality identified. 2. Prior cholecystectomy.
[2020-07-23 09:47] LABS: Basophils # 0.1 10^3/uL (0.0-0.1); Basophils % 1.8 %; Eosinophils # 0.6 10^3/uL (0.0-0.8); Eosinophils % 9.8 %; Hematocrit 28.6 % (37.0-47.0); Hemoglobin 9.3 g/dL (11.5-15.3); Lymphocytes # 0.8 10^3/uL (0.8-4.8); Lymphocytes % 12.6 %; Mean Corpuscular HGB Conc 32.5 g/dL (30.0-36.0); Mean Corpuscular Volume 89.1 fL (81-99); Mean Platelet Volume 10.2 fL (7.4-10.4); Monocytes # 0.4 10^3/uL (0.2-0.9); Monocytes % 6.1 %; Neutrophils # 4.28 10^3/uL (1.8-7.7); Neutrophils % 69.1 %; Nucleated Red Blood Cells % 0 %; Platelet Count 361 10^3/cmm (130-400); Red Blood Count 3.21 10^6/uL (4.1-5.3); Red Cell Distribution Width 13.1 % (12.1-15.1); White Blood Count 6.2 10^3/uL (4.0-10.0)
[2020-07-23 09:58] VITALS: BP 189/73; PULSE 65; RESP 12; O2SAT 94
--- NOTE | 2020-07-23 10:01 | PC.NURSE ---
portable xray at bedside
[2020-07-23 10:05] LABS: Alanine Aminotransferase 8 U/L (0-33); Albumin Level 3.7 g/dL (3.5-5.2); Alkaline Phosphatase 100 IU/L (35-105); Aspartate Amino Transferase 15 U/L (0-32); Blood Urea Nitrogen 56 mg/dL (8-23); Calcium 9.5 mg/dL (8.5-10.5); Carbon Dioxide 23 mmol/L (22-29); Chloride 96 mmol/L (98-107); Globulin 2.1 g/dL (1.3-4.6); Glucose 118 mg/dL (65-115); Magnesium 1.6 mg/dL (1.7-2.3); Osmolality Calculated 287 mOsm/kg (285-295); Sodium 130 mmol/L (136-145); Total Bilirubin 0.2 mg/dL (0.15-1.2); Total Protein 5.8 g/dL (6.6-8.7)
[2020-07-23 10:07] LABS: Troponin T (5th) Once 51 ng/L (0-10)
[2020-07-23 10:25] LABS: ABG PCO2 45.3 mmHg (35-45); ABG PH Result 7.36 (7.35-7.45); Blood Gas Operator Identificat AMH; Blood Gas Sample Site Brachial, right; Blood Gas Sample Type Arterial; HCO3 ABG 25.6 mmol/L (22-26); HGB O2 Sat 88.3 % (95-100); Ionized Calcium Level - ABG 1.3 mmol/L (1.1-1.4); Methemoglobin 0.8 % (0.4-1.5); Oxygen Device ROOM AIR; Potassium Level - ABG 4.7 mmol/L (3.5-5.0); Total Hemoglobin 9.8 g/dL (12-16)
[2020-07-23 10:39] LABS: NT Pro B Type Natriuretic Pept 2932 pg/mL (0-125)
[2020-07-23 10:43] LABS: Add Urine Microscopic? YES; Bilirubin Urine Neg (Negative); Blood Urine Neg (Negative); Glucose Urine UA Norm (Normal); Ketones Urine Negative (Negative); Leukocyte Esterase Urine Negative (Negative); Nitrate Urine Negative (Negative); Protein Urine 1+ (Negative); Urine Appearance Clear (CLEAR); Urine Color Yellow (Yellow); Urobilinogen Urine Norm (Negative); pH Urine 6 (5-7)
[2020-07-23 10:44] LABS: Bacteria Urine TRACE /hpf; Mucus Urine 1+ /hpf
[2020-07-23 10:45] LABS: Add Urine Culture? No
[2020-07-23 11:13] VITALS: BP 219/80; PULSE 61; RESP 25; O2SAT 99
--- NOTE | 2020-07-23 11:19 | CTR_ITS ---
PROCEDURE INFORMATION: Exam: CT Head Without Contrast Exam date and time: 07/23/2020 12:08 PM Age: 74 years old Clinical indication: Altered mental status/memory loss; Confusion or disorientation; Additional info: AMS TECHNIQUE: Imaging protocol: Computed tomography of the head without contrast. Radiation optimization: All CT scans at this facility use at least one of these dose optimization techniques: automated exposure control; mA and/or kV adjustment per patient size (includes targeted exams where dose is matched to clinical indication); or iterative reconstruction. COMPARISON: CT head wo con* [id number] 05/19/2020 8:46 PM RADIATION DOSE METRICS: Total DLP (mGy-cm): 686.13 FINDINGS: Brain: Moderate hypoattenuating foci are noted in the anterior lateral ventricular periventricular white matter bilaterally. No intracranial hemorrhage. No mass or acute cortical infarction identified. Cerebral ventricles: Prominence of the ventricular system and subarachnoid spaces is consistent with the patient's age of 74 years. Bilateral choroid plexus xanthogranulomatous changes, normal variant. Bones/joints: No acute abnormality. No acute fracture. Paranasal sinuses: Opacified left frontal, anterior ethmoid, maxillary, and sphenoid sinuses redemonstrated. Mastoid air cells: Visualized mastoid air cells are well aerated. Orbital cavity: Bilateral prior cataract surgery with lens replacements. Vasculature: Atherosclerotic calcifications are present involving the carotid artery siphons and vertebral arteries bilaterally. Soft tissues: Unremarkable. CT/CT head wo con* [id number] IMPRESSION: 1. Age appropriate supratentorial and infratentorial atrophy. 2. Moderate chronic white matter microvascular ischemic disease. 3. No acute intracranial abnormality identified. 4. Incidental paranasal sinus disease as above. Radiation Dose CTDIVOL = (mGy): DLP = 686.13 (mGy-cm)
[2020-07-23 11:54] LABS: Troponin 5 2HR 50.83 ng/L (0-10)
[2020-07-23 12:01] LABS: Troponin 5 2HR Delta -0.17 ABS# (0-10)
--- NOTE | 2020-07-23 12:09 | PC.NURSE ---
pt to CT by stretcher with tech
[2020-07-23 13:37] VITALS: BP 190/97; PULSE 63; RESP 20; O2SAT 97
== END 2020-07-23 14:37 | disposition home or self-care (01) ==
PROVIDERS: Emergency Provider Family Medicine; PCP Family Medicine
DX: R53.1 Weakness (principal); R53.81 Other malaise; R63.0 Anorexia; N18.9 Chronic kidney disease, unspecified; D63.1 Anemia in chronic kidney disease
CPT/HCPCS: 36415; 36600; 51701; 70450; 71045; 80051; 80053; 81001; 82330; 82805; 83735; 83880; 84484; 85025; 93005; 99284

== ENCOUNTER 2020-08-02 09:31 | Outpatient (CLI) | payer MEDICARE, SELFPAY | END 2020-08-02 09:32 | disposition home or self-care (01) | LOC: WOUND 09:32 | PROVIDERS: PCP Family Medicine; Visit Provider Nurse Practitioner Family | DX: L97.412 Non-pressure chronic ulcer of right heel and midfoot with fat layer exposed (principal); L97.522 Non-pressure chronic ulcer of other part of left foot with fat layer exposed; L97.422 Non-pressure chronic ulcer of left heel and midfoot with fat layer exposed | CPT/HCPCS: 11042; 87070; 87077; 87176; 87186; 87205; G0463 ==

== ENCOUNTER 2020-08-04 10:49 | Outpatient (CLI) | payer MEDICARE, SELFPAY ==
--- NOTE | 2020-08-04 11:02 | XR_ITS ---
WS: [id number] Right foot, 3 views, 08/04/2020 Clinical Data: PAIN/REDNESS/NON HEALING ULCER Comparison: None. Findings: There are multiple areas of bone loss and bone destruction. There is erosion of the head of the right fifth metatarsal and of the distal right fifth proximal phalanx. There is complete loss of the right fifth middle phalanx. Multiple erosive changes are also seen in the DIP joints and PIP joints of the third and fourth toes. There are erosions of the PIP and IP joint of the second and first toes. Ther e is destructive change at the bases of the first through fifth metatarsals and the accompanying firs t, second and third cuneiform bones and the cuboid. There is also erosive change of the tarsal navicu lar. The foot is flat. There is soft tissue swelling about the foot. There is a plantar spur. XR/XR foot RT min 3V* [id number] Impression: Diffuse destructive and cystic changes throughout the right foot along with sof t tissue swelling all consistent with osteomyelitis and Charcot foot.
--- NOTE | 2020-08-04 11:02 | XR_ITS ---
WS: [id number] Left foot, 3 views, 08/04/2020 Clinical Data: PAIN/REDNESS/NON HEALING ULCER Comparison: None. Findings: Diffuse destructive changes and erosions are seen throughout the left foot. There is distraction of t he distal aspect of the left fifth metatarsal and the left fifth middle phalanx. There is complete er osion of the left third middle phalanx and most of the left third distal phalanx. There are cystic ch anges along the phalanges. There are cystic changes of the bases of the second through fifth metatars als. There is modest soft tissue swelling. No fractures are seen. XR/XR foot LT min 3V* [id number] Impression: Diffuse cystic erosive and destructive changes most consistent with osteomyelit is and Charcot foot.
== END 2020-08-04 10:50 | disposition home or self-care (01) ==
LOC: RAD 10:56
PROVIDERS: PCP Family Medicine; Visit Provider Nurse Practitioner Family
DX: M79.672 Pain in left foot (principal); M79.671 Pain in right foot; L53.9 Erythematous condition, unspecified; L97.529 Non-pressure chronic ulcer of other part of left foot with unspecified severity; L97.519 Non-pressure chronic ulcer of other part of right foot with unspecified severity
CPT/HCPCS: 73630

== ENCOUNTER 2020-08-09 10:07 | Outpatient (CLI) | payer MEDICARE, SELFPAY | END 2020-08-09 10:08 | disposition home or self-care (01) | LOC: WOUND 10:08 | PROVIDERS: PCP Family Medicine; Visit Provider Thoracic Surgery (Cardiothoracic Vascular Surgery) | DX: I96 Gangrene, not elsewhere classified (principal); L89.612 Pressure ulcer of right heel, stage 2; L89.893 Pressure ulcer of other site, stage 3; L89.622 Pressure ulcer of left heel, stage 2 | CPT/HCPCS: 11042; 97597 ==

== ENCOUNTER 2020-08-23 10:11 | Outpatient (CLI) | payer MEDICARE, SELFPAY | END 2020-08-23 10:12 | disposition home or self-care (01) | LOC: WOUND 10:12 | PROVIDERS: PCP Family Medicine; Visit Provider Thoracic Surgery (Cardiothoracic Vascular Surgery) | DX: I96 Gangrene, not elsewhere classified (principal); L89.612 Pressure ulcer of right heel, stage 2; L89.893 Pressure ulcer of other site, stage 3; L89.622 Pressure ulcer of left heel, stage 2; L89.892 Pressure ulcer of other site, stage 2 | CPT/HCPCS: 11042; 36415; 80053; 84550; 85025; 88300; 88307 ==

== ENCOUNTER 2020-08-23 12:22 | Outpatient (CLI) | payer MEDICARE, SELFPAY ==
[2020-08-23 12:59] LABS: Basophils # 0.1 10^3/uL (0.0-0.1); Basophils % 1.7 %; Eosinophils # 0.2 10^3/uL (0.0-0.8); Eosinophils % 4.2 %; Hematocrit 31.3 % (37.0-47.0); Hemoglobin 9.9 g/dL (11.5-15.3); Lymphocytes # 0.5 10^3/uL (0.8-4.8); Lymphocytes % 10.6 %; Mean Corpuscular HGB Conc 31.6 g/dL (30.0-36.0); Mean Corpuscular Hemoglobin 28.2 pg (28.0-34.0); Mean Corpuscular Volume 89.2 fL (81-99); Monocytes # 0.3 10^3/uL (0.2-0.9); Monocytes % 6.9 %; Neutrophils # 3.67 10^3/uL (1.8-7.7); Neutrophils % 76.2 %; Nucleated Red Blood Cells % 0 %; Platelet Count 286 10^3/cmm (130-400); Red Blood Count 3.51 10^6/uL (4.1-5.3); Red Cell Distribution Width 13.2 % (12.1-15.1); White Blood Count 4.8 10^3/uL (4.0-10.0)
[2020-08-23 13:25] LABS: Alanine Aminotransferase 10 U/L (0-33); Alkaline Phosphatase 86 IU/L (35-105); Anion Gap 16.8 (5-19); Aspartate Amino Transferase 15 U/L (0-32); Blood Urea Nitrogen 60 mg/dL (8-23); Calcium 9.1 mg/dL (8.5-10.5); Carbon Dioxide 26 mmol/L (22-29); Chloride 94 mmol/L (98-107); Globulin 2.7 g/dL (1.3-4.6); Glucose 100 mg/dL (65-115); Osmolality Calculated 291 mOsm/kg (285-295); Potassium 4.8 mmol/L (3.5-5.1); Sodium 132 mmol/L (136-145); Total Bilirubin 0.2 mg/dL (0.15-1.2); Total Protein 6.7 g/dL (6.6-8.7); Uric Acid 8.5 mg/dL (2.4-5.7)
== END 2020-08-23 12:23 | disposition home or self-care (01) ==
LOC: LAB 12:27
PROVIDERS: PCP Family Medicine; Visit Provider Thoracic Surgery (Cardiothoracic Vascular Surgery)
DX: L89.892 Pressure ulcer of other site, stage 2 (principal)
CPT/HCPCS: 36415; 80053; 84550; 85025

== ENCOUNTER 2020-08-30 09:11 | Outpatient (CLI) | payer MEDICARE, SELFPAY ==
--- NOTE | 2020-08-30 09:24 | USCV_ITS ---
Scout Ana Age: 74 Gender: F : 1945 Exam Date: 08/30/2020 10:06 Ordering Phys: Kalani Lopez Technologist: Tamiko Calhoun Exam Location: [facility] [place] Indication: HISTORY: Lower extremity pain. PROCEDURES: Comparison: none available. Bilateral duplex Venous Insufficiency study of the Deep and Superficial systems was carried out according to normal protocol with the patient in supine positon for deep system and dependent position for the superficial system. FINDINGS: There is no evidence of bilateral deep vein thrombosis. No evidence of superficial thrombosis in the bilateral saphenous system. No evidence of reflux was noted in the bilateral deep venous system. No venous reflux noted in the bilateral greater saphenous vein. No venous reflux noted in the bilateral small saphenous vein. CONCLUSIONS No evidence of DVT in the above-mentioned identifiable veins. No significant venous reflux either in the deep or in the superficial vein Relatively small caliber veins bilaterally. Dr Michael Richards MD [facility] (Electronically Signed) Final Date: 30 Aug 2020 20:56 S
== END 2020-08-30 09:12 | disposition home or self-care (01) ==
PROVIDERS: PCP Family Medicine; Visit Provider Nurse Practitioner Family
DX: M79.604 Pain in right leg (principal); M79.605 Pain in left leg; L53.9 Erythematous condition, unspecified; L97.529 Non-pressure chronic ulcer of other part of left foot with unspecified severity; L97.519 Non-pressure chronic ulcer of other part of right foot with unspecified severity
CPT/HCPCS: 93970

== ENCOUNTER 2020-08-31 08:57 | Outpatient (CLI) | payer MEDICARE, SELFPAY ==
--- NOTE | 2020-08-31 09:02 | USCV_ITS ---
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 Features of moderate peripheral artery disease involving the distal vessel on the left side 2. Features of mild peripheral artery disease on the right side Dr Michael Richards MD [facility] (Electronically Signed) Final Date: 31 Aug 2020 10:19 S
== END 2020-08-31 08:58 | disposition home or self-care (01) ==
LOC: US 08:58
PROVIDERS: PCP Family Medicine; Visit Provider Nurse Practitioner Family
DX: M79.604 Pain in right leg (principal); M79.605 Pain in left leg; L53.9 Erythematous condition, unspecified; L97.919 Non-pressure chronic ulcer of unspecified part of right lower leg with unspecified severity
CPT/HCPCS: 93923

== ENCOUNTER 2020-09-06 10:34 | Outpatient (CLI) | payer MEDICARE, SELFPAY | END 2020-09-06 10:35 | disposition home or self-care (01) | LOC: WOUND 10:35 | PROVIDERS: PCP Family Medicine; Visit Provider Thoracic Surgery (Cardiothoracic Vascular Surgery) | DX: I96 Gangrene, not elsewhere classified (principal); L89.612 Pressure ulcer of right heel, stage 2; L89.893 Pressure ulcer of other site, stage 3; L89.622 Pressure ulcer of left heel, stage 2 | CPT/HCPCS: 11042 ==

== ENCOUNTER 2020-09-13 13:02 | Outpatient (CLI) | payer MEDICARE, SELFPAY | END 2020-09-13 13:03 | disposition home or self-care (01) | PROVIDERS: PCP Family Medicine; Visit Provider Nurse Practitioner Family | DX: I96 Gangrene, not elsewhere classified (principal); L89.612 Pressure ulcer of right heel, stage 2; L89.893 Pressure ulcer of other site, stage 3; L89.622 Pressure ulcer of left heel, stage 2 | CPT/HCPCS: 11042 ==

== ENCOUNTER 2020-09-20 12:59 | Outpatient (CLI) | payer MEDICARE, SELFPAY | END 2020-09-20 13:00 | disposition home or self-care (01) | LOC: WOUND 13:00 | PROVIDERS: PCP Family Medicine; Visit Provider Thoracic Surgery (Cardiothoracic Vascular Surgery) | DX: L89.612 Pressure ulcer of right heel, stage 2 (principal); L89.893 Pressure ulcer of other site, stage 3 | CPT/HCPCS: 97597 ==

== ENCOUNTER 2020-09-27 13:06 | Outpatient (CLI) | payer MEDICARE, SELFPAY | END 2020-09-27 13:07 | disposition home or self-care (01) | LOC: WOUND 13:06 | PROVIDERS: PCP Family Medicine; Visit Provider Thoracic Surgery (Cardiothoracic Vascular Surgery) | DX: L89.893 Pressure ulcer of other site, stage 3 (principal); L89.622 Pressure ulcer of left heel, stage 2 | CPT/HCPCS: 11042 ==

== ENCOUNTER 2020-10-04 13:14 | Outpatient (CLI) | payer MEDICARE, SELFPAY | END 2020-10-04 13:15 | disposition home or self-care (01) | LOC: WOUND 13:15 | PROVIDERS: PCP Family Medicine; Visit Provider Thoracic Surgery (Cardiothoracic Vascular Surgery) | DX: L89.893 Pressure ulcer of other site, stage 3 (principal); L89.622 Pressure ulcer of left heel, stage 2; L97.521 Non-pressure chronic ulcer of other part of left foot limited to breakdown of skin; L97.511 Non-pressure chronic ulcer of other part of right foot limited to breakdown of skin | CPT/HCPCS: 97597; 97598 ==

== ENCOUNTER 2020-10-18 13:03 | Outpatient (CLI) | payer MEDICARE, SELFPAY | END 2020-10-18 13:04 | disposition home or self-care (01) | LOC: WOUND 13:04 | PROVIDERS: PCP Family Medicine; Visit Provider Nurse Practitioner Family | DX: L89.893 Pressure ulcer of other site, stage 3 (principal); L89.622 Pressure ulcer of left heel, stage 2; L97.511 Non-pressure chronic ulcer of other part of right foot limited to breakdown of skin; L97.521 Non-pressure chronic ulcer of other part of left foot limited to breakdown of skin | CPT/HCPCS: 99212 ==

== ENCOUNTER 2020-12-30 18:53 | Inpatient (IN) | payer MEDICARE, SELFPAY ==
[2020-12-30] VITALS (10 sets, daily range): BP systolic 123–173; BP diastolic 47–93; PULSE 62–92; RESP 12–19; TEMP 36.6; O2SAT 97–100; BMI 24.3
--- NOTE | 2020-12-30 18:54 | CTR_ITS ---
PROCEDURE INFORMATION: Exam: CT Head Without Contrast Exam date and time: 12/30/2020 6:54 PM Age: 75 years old Clinical indication: Weakness, extremity and weakness, facial; Left; Patient HX: L sided defecits; Additional info: Possible CVA TECHNIQUE: Imaging protocol: Computed tomography of the head without contrast. Radiation optimization: All CT scans at this facility use at least one of these dose optimization techniques: automated exposure control; mA and/or kV adjustment per patient size (includes targeted exams where dose is matched to clinical indication); or iterative reconstruction. Other technique: STROKE PROTOCOL was implemented. COMPARISON: CT head wo con* [id number] 07/23/2020 12:27 PM RADIATION DOSE METRICS: Total DLP (mGy-cm): 974.99 FINDINGS: Brain: Mild atrophy and mild white matter chronic microvascular changes are noted. No hemorrhage or evidence of acute infarction is seen. Cerebral ventricles: No ventriculomegaly. Paranasal sinuses: Left frontal, ethmoid and maxillary sinusitis is appreciated. Mastoid air cells: Mild left mastoiditis is appreciated. Bones/joints: Unremarkable. No acute fracture. Soft tissues: Unremarkable. CT/CT head wo con* [id number] IMPRESSION: 1. No acute intracranial abnormality. 2. Moderate sinusitis and mild left mastoiditis. ASSESSMENT: ASPECTS ([place] Stroke Program Early CT Score) is 10. Radiation Dose CTDIVOL = (mGy): DLP = 974.99 (mGy-cm)
--- NOTE | 2020-12-30 18:55 | ECG_ITS ---
[facility] Test Date: 2020-12-30 Pat Name: Ana Butterfield Department: Room: Gender: Female [employer] Worker: : 1945 Requested By: Jerry Sosa Order Number: [id number] Arina MD: Nikki Washington M.D. Measurements Intervals [place] Rate: 77 P: VA: QRS: -38 QRSD: 84 T: 67 QT: 367 QTc: 416 Interpretive Statements SUPRAVENTRICULAR RHYTHM LEFT AXIS DEVIATION [QRS AXIS < -30] MINIMAL ST DEPRESSION [0.025+ mV ST DEPRESSION] Compared to ECG 07/23/2020 09:55:15 Supraventricular rhythm now present Left-axis deviation now present Sinus rhythm no longer present ST (T wave) deviation still present Electronically Signed On 01-01-2021 19:14:57 CDT by Nikki Washington M.D. [email or web address]
[2020-12-30 18:59] LABS: Basophils # 0.1 10^3/uL (0.0-0.1); Basophils % 0.5 %; Eosinophils # 0.1 10^3/uL (0.0-0.8); Eosinophils % 1.4 %; Hemoglobin 9.6 g/dL (11.5-15.3); Lymphocytes # 0.8 10^3/uL (0.8-4.8); Lymphocytes % 8.1 %; Mean Corpuscular Hemoglobin 31.5 pg (28.0-34.0); Mean Corpuscular Volume 98.4 fl (81-99); Mean Platelet Volume 10.7 fL (7.4-10.4); Monocytes # 0.3 10^3/uL (0.2-0.9); Neutrophils # 8.31 10^3/uL (1.8-7.7); Neutrophils % 86.4 %; Nucleated Red Blood Cells % 0.2 %; Platelet Count 457 10^3/cmm (130-400); Red Blood Count 3.05 10^6/uL (4.1-5.3); Red Cell Distribution Width 15.4 % (12.1-15.1); White Blood Count 9.6 10^3/uL (4.0-10.0)
--- NOTE | 2020-12-30 19:05 | CTR_ITS ---
PROCEDURE INFORMATION: Exam: CT Angiography Head With Contrast, Arteriography Exam date and time: 12/30/2020 7:05 PM Age: 75 years old Clinical indication: Weakness; Patient HX: L sided defecits; Additional info: CVA TECHNIQUE: Imaging protocol: Computed tomography angiography of the head with contrast. Exam focused on the arteries. 3D rendering (Not supervised by radiologist): MIP and/or 3D reconstructed images were created by the technologist. Radiation optimization: All CT scans at this facility use at least one of these dose optimization techniques: automated exposure control; mA and/or kV adjustment per patient size (includes targeted exams where dose is matched to clinical indication); or iterative reconstruction. Contrast material: VISI 320; Contrast volume: 75 ml; Contrast route: INTRAVENOUS (IV); COMPARISON: CT head wo con* [id number] 12/30/2020 6:55 PM RADIATION DOSE METRICS: Total DLP (mGy-cm): 1436.63 FINDINGS: ANTERIOR CIRCULATION: Right internal carotid artery: Unremarkable. Intracranial segment is patent with no significant stenosis. No aneurysm. Right middle cerebral artery: Unremarkable. No occlusion or significant stenosis. No aneurysm. Right anterior cerebral artery: Unremarkable. No occlusion or significant stenosis. No aneurysm. Left internal carotid artery: Unremarkable. Intracranial segment is patent with no significant stenosis. No aneurysm. Left middle cerebral artery: Severe stenosis of the M1 segment of the left MCA is appreciated. Otherwise, the left MCA appears patent. Left anterior cerebral artery: Unremarkable. No occlusion or significant stenosis. No aneurysm. POSTERIOR CIRCULATION: Right vertebral artery: Unremarkable. No occlusion or significant stenosis. No aneurysm. Left vertebral artery: The terminal left vertebral artery is occluded distal to the PICA branch. Basilar artery: Unremarkable. No occlusion or significant stenosis. No aneurysm. Right posterior cerebral artery: Persistent origin. [id number] stenosis of the proximal to mid right [employer] is appreciated Left posterior cerebral artery: Persistent origin. No occlusion or significant stenosis. No aneurysm. IMPRESSION: 1. Occluded terminal left vertebral artery. 2. 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 3. [id number] stenosis of the proximal to mid right [employer]. PROCEDURE INFORMATION: Exam: CT Angiography Neck With Contrast Exam date and time: 12/30/2020 7:05 PM Age: 75 years old Clinical indication: Weakness; Patient HX: L sided defecits; Additional info: CVA TECHNIQUE: Imaging protocol: Computed tomography angiography of the neck with contrast. 3D rendering (Not supervised by radiologist): MIP and/or 3D reconstructed images were created by the technologist. Radiation optimization: All CT scans at this facility use at least one of these dose optimization techniques: automated exposure control; mA and/or kV adjustment per patient size (includes targeted exams where dose is matched to clinical indication); or iterative reconstruction. Contrast material: VISI 320; Contrast volume: 75 ml; Contrast route: INTRAVENOUS (IV); COMPARISON: CT head wo con* [id number] 12/30/2020 6:55 PM RADIATION DOSE METRICS: Total DLP (mGy-cm): 1436.63 FINDINGS: Right common carotid artery: No stenosis. No dissection or occlusion. Right internal carotid artery: Mild stenosis of the right carotid bulb and proximal right ICA is noted. Right external carotid artery: No occlusion or stenosis of the origin. Left common carotid artery: No stenosis. No dissection or occlusion. Left internal carotid artery: Mild stenosis of the left ICA origin. Left external carotid artery: No occlusion or stenosis of the origin. Right vertebral artery: Short segment moderate stenosis of the proximal right vertebral artery is appreciated. Mild stenosis of the distal right vertebral artery at the craniocervical junction is also noted. Left vertebral artery: No stenosis. No dissection or occlusion. Soft tissues: Normal. No significant soft tissue swelling. Bones/joints: [id number] degenerative changes are seen in the cervical spine. Moderate anterolisthesis of C5 over C6 is noted causing severe canal stenosis. No acute fracture. CT/CT angio headneck* [id number] IMPRESSION: 1. Moderate stenosis of the proximal right vertebral artery. 2. Mild stenoses of the right carotid bulb and proximal right ICA, left ICA origin, and distal right vertebral artery. 3. Moderate anterolisthesis of C5 over C6 and associated severe canal stenosis. REFERENCES: NASCET CRITERIA. The degree of internal carotid artery stenosis is based on NASCET criteria. Normal is no stenosis. Mild is less than 50% stenosis. Moderate is 50-69% stenosis. Severe is 70% to 99% stenosis. Total occlusion is no detectable patent lumen. Radiation Dose CTDIVOL = (mGy): DLP = 1436.63~1436.63 (mGy-cm)
--- NOTE | 2020-12-30 19:06 | XRR_ITS ---
PROCEDURE INFORMATION: Exam: XR Chest Exam date and time: 12/30/2020 7:06 PM Age: 75 years old Clinical indication: Other: Stroke like symptoms TECHNIQUE: Imaging protocol: XR of the chest. Views: 1 view. COMPARISON: CR XR chest 1V portable [id number] 07/23/2020 9:53 AM FINDINGS: Lungs: The lungs are clear. Pleural spaces: Unremarkable. No pleural effusion. No pneumothorax. Heart/Mediastinum: Unremarkable. No cardiomegaly. Bones/joints: Chronic left humeral head/neck fracture is again noted. XR/XR chest 1V portable [id number] IMPRESSION: No acute cardiopulmonary abnormality.
[2020-12-30] MEDS: iodixanol 320 mg/mL 100mL Btl IV (19:13)
[2020-12-30 19:35] LABS: Troponin T (5th) Once 91 ng/L (0-10)
[2020-12-30 19:37] LABS: INR 1.12 (0.8-1.2)
[2020-12-30 19:38] LABS: Alanine Aminotransferase 12 U/L (0-33); Albumin Level 4.1 g/dL (3.5-5.2); Alkaline Phosphatase 100 IU/L (35-105); Anion Gap 28.9 (5-19); Aspartate Amino Transferase 17 U/L (0-32); Calcium 9.2 mg/dL (8.5-10.5); Carbon Dioxide 15 mmol/L (22-29); Chloride 97 mmol/L (98-107); Globulin 3.2 g/dL (1.3-4.6); Glucose 101 mg/dL (65-115); Osmolality Calculated 302 mOsm/kg (285-295); Sodium 133 mmol/L (136-145); Total Bilirubin 0.2 mg/dL (0.15-1.2); Total Protein 7.3 g/dL (6.6-8.7)
[2020-12-30 19:41] LABS: Blood Urea Nitrogen 84 mg/dL (8-23); Potassium 7.9 mmol/L (3.5-5.1)
[2020-12-30 19:45] LABS: Add Urine Microscopic? YES; Bilirubin Urine Neg (Negative); Blood Urine Neg (Negative); Glucose Urine UA Norm (Normal); Ketones Urine 1+ (Negative); Leukocyte Esterase Urine Negative (Negative); Nitrate Urine Negative (Negative); Protein Urine Trace (Negative); Urine Appearance Clear (CLEAR); Urine Color Yellow (Yellow); Urobilinogen Urine Norm (Negative); pH Urine 5 (5-7)
[2020-12-30] MEDS: sodium bicarbonate 8.4% 1 mEq/mL 50mL Syr 50 MEQ IVP ×2 (19:59→20:46)
[2020-12-30 20:06] LABS: Bacteria Urine TRACE /hpf; RBC Urine 0-4 /hpf (0-2); WBC Urine 0-4 /hpf (0-5)
[2020-12-30 20:07] LABS: Add Urine Culture? No
--- NOTE | 2020-12-30 20:10 | ED_ITS ---
HPI - General Adult General: Chief complaint: ER Hold Stated complaint: AMS/ INCREASED WEAKNESS/ STROKE LIKE SX Time Seen by Provider: 12/30/20 19:21 History of Present Illness: HPI narrative: 75-year-old female with a history of diabetes, hypertension who presents the emergency room for new onset of AMS and inability to move arms or legs times since 3pm today. Per , patient at baseline is communicative has a left arm fracture and walks around with a walker. Since she went to sleep around 3 PM, patient has noted to be confused and obtunded. EMS was alerted. In route, EMS noted left-sided facial droop with left-sided eye deviation. EMS also notes that flaccid paralysis throughout the body. Stroke alert was activated shortly upon arrival. On arrival, patient is GCS 3, unresponsive to sternal rub. Patient has mid-sized pupils and is blink ing. Fingerstick 146. Blood pressure 150/80. Stroke lab was called immediately upon arrival. Onset: 1500 Duration:3 hrs Location:home Severity:severe Review of Systems Narrative: Unable to obtain due to AMS [facility] ED PFSH: Medical History (Updated 12/31/20 @ 00:57 by Shelia Beckwith MD) History of colon cancer Hypertension Surgical History History of laparoscopic appendectomy Social History Smoking and tobacco status: former smoker Quit status (tobacco): has quit using tobacco Second hand smoke exposure: No Alcohol intake: never Female Reproductive History: Date of last menstrual period: 07/13/20 Physical Exam Narrative: EXAM NARRATIVE: Head: Atraumatic Eyes: PERRL, conjunctiva without injection, +blinking eyes, ENT: Dry membrane moist NECK: Supple, ROM intact LUNGS: LCTAB, no crackles/rhonchi CV: RRR ABDOMEN: Soft, nontender in all quadrants EXTREMITY: Normal ROM SKIN: No rash or erythema NEURO: NIHSS score of 31 PSYCH: Unable to assess Procedures Central Line Placement Left Femoral: Time Out Performed: Yes Patient Placed on Monitor/Pulse Ox: Yes Prep: mask, gown, gloves and other Central Line Prep: Povidone-Iodine 1% Local Anesthetic: lidocaine 1% Amount of anesthesia used (mL): 5 Ultrasound Used for Placement: Yes Central Line Lumen Inserted: double Post Procedure: sutured in place Patient Tolerated Procedure: well Complications: none Additional Comments: L femoral dialysis double lumen placed in the L femoral vein. Course Vital Signs: Vital signs: Vital Signs Temperature 98.6 F 01/01/21 12:00 Pulse Rate 69 01/01/21 13:11 Respiratory Rate 12 01/01/21 12:00 Blood Pressure 109/74 01/01/21 12:00 Pulse Oximetry 100 01/01/21 12:00 MDM - General Adult MDM Narrative: Medical decision making narrative: 75-year-old female presenting to the emergency room with concerns for altered mental status and possible stroke. On arrival, patient had a NIHSS score of 31. Stroke alert was called immediately upon arrival. CT brain did not show any signs of acute bleed. CT head showed severe stenosis of the left M1, and complete occlusion of left vertebral artery. Discussed finding with neurology provider Dr. Nelson from [facility] telestroke service who did not recommend TPA at this time given high NIHSS score and risks of bleeding. EKG showed peaked T waves. Initial potassium was 7.9 repeat of 7.4 after 2 g of calcium gluconate. Patient is noted to have a creatinine of 4.3 new from prior baseline of 2. Addition, patient is noted to have a BUN of 86. Case was emergently discussed with Dr. Thomosn from Neology recommendation for dialysis. Patient received 2 A of bicarb calcium gluconate 2 g, Lasix 40 mg with return of [address] Thomson recommends emergent dialysis tonight. Patient's altered mental status and flaccid paralysis likely secondary to altered mental status and periodic hyperkalemic paralysis. Will defer mastoiditis treatment to the inpatient team. Disposition: Patient will be admitted to the hospital for emergent dialysis. Lab Data: Labs: Lab Results 12/30/20 12/30/20 12/30/20 Range/Units 18:57 18:57 18:57 WBC 9.6 (4.0-10.0) 10^3/ uL RBC 3.05 L (4.1-5.3) 10^6/u L Hgb 9.6 L (11.5-15.3) g/dL Hct 30.0 L (37.0-47.0) % MCV 98.4 (81-99) fl MCH 31.5 (28.0-34.0) pg MCHC 32.0 (30.0-36.0) g/dL RDW 15.4 H (12.1-15.1) % Plt Count 457 H (130-400) 10^3/c mm MPV 10.7 H (7.4-10.4) fL Neut % (Auto) 86.4 % Lymph % (Auto) 8.1 % Brooke % (Auto) 3.0 % Eos % (Auto) 1.4 % Baso % (Auto) 0.5 % Neut # (Auto) 8.31 H (1.8-7.7) 10^3/u L Lymph # (Auto) 0.8 (0.8-4.8) 10^3/u L Brooke # (Auto) 0.3 (0.2-0.9) 10^3/u L Eos # (Auto) 0.1 (0.0-0.8) 10^3/u L Baso # (Auto) 0.1 (0.0-0.1) 10^3/u L Nucleated RBC % (a uto) 0.2 % Nucleated RBCs # 0.0 /100WBC PT (12.1-14.9) SECO NDS INR (0.8-1.2) Sodium 133 L (136-145) mmol/L Potassium 7.9 H* (3.5-5.1) mmol/L Chloride 97 L (98-107) mmol/L Carbon Dioxide 15 L (22-29) mmol/L Anion Gap 28.9 H (5-19) BUN 84 H* (8-23) mg/dL Creatinine 4.3 H (0.5-0.9) mg/dL GFR Calculation Not Reportable Glucose 101 (65-115) mg/dL POC Glucose (70-110) mg/dL Calculated Osmolal ity 302 H (285-295) mOsm/k g Lactate (0.5-2.2) mmol/L Calcium 9.2 (8.5-10.5) mg/dL Total Bilirubin 0.2 (0.15-1.2) mg/dL AST 17 (0-32) U/L ALT 12 (0-33) U/L Alkaline Phosphata se 100 (35-105) IU/L Troponin T Gen 5 n g/L 91 H (0-10) ng/L Total Protein 7.3 (6.6-8.7) g/dL Albumin 4.1 (3.5-5.2) g/dL Globulin 3.2 (1.3-4.6) g/dL Urine Color (Yellow) Urine Appearance (CLEAR) Urine pH (5-7) Ur Specific Gravit y (1.005-1.030) Urine Protein (Negative) Urine Glucose (UA) (Normal) Urine Ketones (Negative) Urine Blood (Negative) Urine Nitrate (Negative) Urine Bilirubin (Negative) Prot Sulfosalicyli c Acd Urine Urobilinogen (Negative) mg/dL Ur Leukocyte Amber ase (Negative) Urine RBC (0-2) /hpf Urine WBC (0-5) /hpf Ur Squamous Epith Cells (0-5) /hpf Amorphous Sediment Urine Bacteria (NONE) /hpf Hyaline Casts /lpf Ur Random Sodium mmol/L Urine Creatinine 12/30/20 12/30/20 12/30/20 Range/Units 19:07 19:14 19:39 WBC (4.0-10.0) 10^3/ uL RBC (4.1-5.3) 10^6/u L Hgb (11.5-15.3) g/dL Hct (37.0-47.0) % MCV (81-99) fl MCH (28.0-34.0) pg MCHC (30.0-36.0) g/dL RDW (12.1-15.1) % Plt Count (130-400) 10^3/c mm MPV (7.4-10.4) fL Neut % (Auto) % Lymph % (Auto) % Brooke % (Auto) % Eos % (Auto) % Baso % (Auto) % Neut # (Auto) (1.8-7.7) 10^3/u L Lymph # (Auto) (0.8-4.8) 10^3/u L Brooke # (Auto) (0.2-0.9) 10^3/u L Eos # (Auto) (0.0-0.8) 10^3/u L Baso # (Auto) (0.0-0.1) 10^3/u L Nucleated RBC % (a uto) % Nucleated RBCs # /100WBC PT 14.70 (12.1-14.9) SECO NDS INR 1.12 (0.8-1.2) Sodium (136-145) mmol/L Potassium (3.5-5.1) mmol/L Chloride (98-107) mmol/L Carbon Dioxide (22-29) mmol/L Anion Gap (5-19) BUN (8-23) mg/dL Creatinine (0.5-0.9) mg/dL GFR Calculation Glucose (65-115) mg/dL POC Glucose 126 H (70-110) mg/dL Calculated Osmolal ity (285-295) mOsm/k g Lactate (0.5-2.2) mmol/L Calcium (8.5-10.5) mg/dL Total Bilirubin (0.15-1.2) mg/dL AST (0-32) U/L ALT (0-33) U/L Alkaline Phosphata se (35-105) IU/L Troponin T Gen 5 n g/L (0-10) ng/L Total Protein (6.6-8.7) g/dL Albumin (3.5-5.2) g/dL Globulin (1.3-4.6) g/dL Urine Color Yellow (Yellow) Urine Appearance Clear (CLEAR) Urine pH 5 (5-7) Ur Specific Gravit y 1.010 (1.005-1.030) Urine Protein Trace (Negative) Urine Glucose (UA) Norm (Normal) Urine Ketones 1+ H (Negative) Urine Blood Neg (Negative) Urine Nitrate Negative (Negative) Urine Bilirubin Neg (Negative) Prot Sulfosalicyli c Acd Urine Urobilinogen Norm (Negative) mg/dL Ur Leukocyte Amber ase Negative (Negative) Urine RBC 0-4 H (0-2) /hpf Urine WBC 0-4 H (0-5) /hpf Ur Squamous Epith Cells 10-15 H (0-5) /hpf Amorphous Sediment Not Reportable Urine Bacteria Trace (NONE) /hpf Hyaline Casts 10-15 H /lpf Ur Random Sodium mmol/L Urine Creatinine 12/30/20 12/30/20 12/30/20 Range/Units 19:39 19:39 19:49 WBC (4.0-10.0) 10^3/ uL RBC (4.1-5.3) 10^6/u L Hgb (11.5-15.3) g/dL Hct (37.0-47.0) % MCV (81-99) fl MCH (28.0-34.0) pg MCHC (30.0-36.0) g/dL RDW (12.1-15.1) % Plt Count (130-400) 10^3/c mm MPV (7.4-10.4) fL Neut % (Auto) % Lymph % (Auto) % Brooke % (Auto) % Eos % (Auto) % Baso % (Auto) % Neut # (Auto) (1.8-7.7) 10^3/u L Lymph # (Auto) (0.8-4.8) 10^3/u L Brooke # (Auto) (0.2-0.9) 10^3/u L Eos # (Auto) (0.0-0.8) 10^3/u L Baso # (Auto) (0.0-0.1) 10^3/u L Nucleated RBC % (a uto) % Nucleated RBCs # /100WBC PT (12.1-14.9) SECO NDS INR (0.8-1.2) Sodium (136-145) mmol/L Potassium (3.5-5.1) mmol/L Chloride (98-107) mmol/L Carbon Dioxide (22-29) mmol/L Anion Gap (5-19) BUN (8-23) mg/dL Creatinine (0.5-0.9) mg/dL GFR Calculation Glucose (65-115) mg/dL POC Glucose (70-110) mg/dL Calculated Osmolal ity (285-295) mOsm/k g Lactate 1.1 (0.5-2.2) mmol/L Calcium (8.5-10.5) mg/dL Total Bilirubin (0.15-1.2) mg/dL AST (0-32) U/L ALT (0-33) U/L Alkaline Phosphata se (35-105) IU/L Troponin T Gen 5 n g/L (0-10) ng/L Total Protein (6.6-8.7) g/dL Albumin (3.5-5.2) g/dL Globulin (1.3-4.6) g/dL Urine Color Cancelled (Yellow) Urine Appearance Cancelled (CLEAR) Urine pH Cancelled (5-7) Ur Specific Gravit y Cancelled (1.005-1.030) Urine Protein Cancelled (Negative) Urine Glucose (UA) Cancelled (Normal) Urine Ketones Cancelled (Negative) Urine Blood Cancelled (Negative) Urine Nitrate Cancelled (Negative) Urine Bilirubin Cancelled (Negative) Prot Sulfosalicyli c Acd Cancelled Urine Urobilinogen Cancelled (Negative) mg/dL Ur Leukocyte Amber ase Cancelled (Negative) Urine RBC (0-2) /hpf Urine WBC (0-5) /hpf Ur Squamous Epith Cells (0-5) /hpf Amorphous Sediment Urine Bacteria (NONE) /hpf Hyaline Casts /lpf Ur Random Sodium 40 mmol/L Urine Creatinine Cancelled 12/30/20 12/30/20 12/30/20 Range/Units 19:49 19:49 20:51 WBC (4.0-10.0) 10^3/ uL RBC (4.1-5.3) 10^6/u L Hgb (11.5-15.3) g/dL Hct (37.0-47.0) % MCV (81-99) fl MCH (28.0-34.0) pg MCHC (30.0-36.0) g/dL RDW (12.1-15.1) % Plt Count (130-400) 10^3/c mm MPV (7.4-10.4) fL Neut % (Auto) % Lymph % (Auto) % Brooke % (Auto) % Eos % (Auto) % Baso % (Auto) % Neut # (Auto) (1.8-7.7) 10^3/u L Lymph # (Auto) (0.8-4.8) 10^3/u L Brooke # (Auto) (0.2-0.9) 10^3/u L Eos # (Auto) (0.0-0.8) 10^3/u L Baso # (Auto) (0.0-0.1) 10^3/u L Nucleated RBC % (a uto) % Nucleated RBCs # /100WBC PT (12.1-14.9) SECO NDS INR (0.8-1.2) Sodium 132 L (136-145) mmol/L Potassium 7.4 H* (3.5-5.1) mmol/L Chloride 97 L (98-107) mmol/L Carbon Dioxide 16 L (22-29) mmol/L Anion Gap 26.4 H (5-19) BUN 86 H* (8-23) mg/dL Creatinine 3.9 H (0.5-0.9) mg/dL GFR Calculation Not Reportable Glucose 106 (65-115) mg/dL POC Glucose (70-110) mg/dL Calculated Osmolal ity 301 H (285-295) mOsm/k g Lactate (0.5-2.2) mmol/L Calcium 9.3 (8.5-10.5) mg/dL Total Bilirubin (0.15-1.2) mg/dL AST (0-32) U/L ALT (0-33) U/L Alkaline Phosphata se (35-105) IU/L Troponin T Gen 5 n g/L 76 H (0-10) ng/L Total Protein (6.6-8.7) g/dL Albumin (3.5-5.2) g/dL Globulin (1.3-4.6) g/dL Urine Color (Yellow) Urine Appearance (CLEAR) Urine pH (5-7) Ur Specific Gravit y (1.005-1.030) Urine Protein (Negative) Urine Glucose (UA) (Normal) Urine Ketones (Negative) Urine Blood (Negative) Urine Nitrate (Negative) Urine Bilirubin (Negative) Prot Sulfosalicyli c Acd Urine Urobilinogen (Negative) mg/dL Ur Leukocyte Amber ase (Negative) Urine RBC (0-2) /hpf Urine WBC (0-5) /hpf Ur Squamous Epith Cells (0-5) /hpf Amorphous Sediment Urine Bacteria (NONE) /hpf Hyaline Casts /lpf Ur Random Sodium mmol/L Urine Creatinine 46 Imaging Data^: Other Imaging: Radiologist's impression: [address] [id number] Scan ReportSigned Patient: Ana Butterfield #: [id number]: 7Acct#:[id number]/Sex: 75 / FADM Date: 12/30/20Loc: ERRoom/Bed:Attending Dr: Ordering Provider/Ordering MD: Jerry Sosa MD Date of Service: 12/30/20 Procedure(s): CT angio headneck* [id number] Accession Number(s): [id number] Report Number: [id number] PROCEDURE INFORMATION: Exam: CT Angiography Head With Contrast, Arteriography Exam date and time: 12/30/2020 7:05 PM Age: 75 years old Clinical indication: Weakness; Patient HX: L sided defecits; Additional info: CVA TECHNIQUE: Imaging protocol: Computed tomography angiography of the head with contrast. Exam focused on the arteries. 3D rendering (Not supervised by radiologist): MIP and/or 3D reconstructed images were created by the technologist. Radiation optimization: All CT scans at this facility use at least one of these dose optimization techniques: automated exposure control; mA and/or kV adjustment per patient size (includes targeted exams where dose is matched to clinical indication); or iterative reconstruction. Contrast material: VISI 320; Contrast volume: 75 ml; Contrast route: INTRAVENOUS (IV); COMPARISON: CT head wo con* [id number] 12/30/2020 6:55 PM RADIATION DOSE METRICS: Total DLP (mGy-cm): 1436.63 FINDINGS: ANTERIOR CIRCULATION: Right internal carotid artery: Unremarkable. Intracranial segment is patent with no significant stenosis. No aneurysm. Right middle cerebral artery: Unremarkable. No occlusion or significant stenosis. No aneurysm. Right anterior cerebral artery: Unremarkable. No occlusion or significant stenosis. No aneurysm. Left internal carotid artery: Unremarkable. Intracranial segment is patent with no significant stenosis. No aneurysm. Left middle cerebral artery: Severe stenosis of the M1 segment of the left MCA is appreciated. Otherwise, the left MCA appears patent. Left anterior cerebral artery: Unremarkable. No occlusion or significant stenosis. No aneurysm. POSTERIOR CIRCULATION: Right vertebral artery: Unremarkable. No occlusion or significant stenosis. No aneurysm. Left vertebral artery: The terminal left vertebral artery is occluded distal to the PICA branch. Basilar artery: Unremarkable. No occlusion or significant stenosis. No aneurysm. Right posterior cerebral artery: Persistent origin. Jfon-ku-tvdldbrx stenosis of the proximal to mid right [employer] is appreciated Left posterior cerebral artery: Persistent origin. No occlusion or significant stenosis. No aneurysm. IMPRESSION: 1. Occluded terminal left vertebral artery. 2. 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 3. 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 PROCEDURE INFORMATION: Exam: CT Angiography Neck With Contrast Exam date and time: 12/30/2020 7:05 PM Age: 75 years old Clinical indication: Weakness; Patient HX: L sided defecits; Additional info: CVA TECHNIQUE: Imaging protocol: Computed tomography angiography of the neck with contrast. 3D rendering (Not supervised by radiologist): MIP and/or 3D reconstructed images were created by the technologist. Radiation optimization: All CT scans at this facility use at least one of these dose optimization techniques: automated exposure control; mA and/or kV adjustment per patient size (includes targeted exams where dose is matched to clinical indication); or iterative reconstruction. Contrast material: VISI 320; Contrast volume: 75 ml; Contrast route: INTRAVENOUS (IV); COMPARISON: CT head wo con* [id number] 12/30/2020 6:55 PM RADIATION DOSE METRICS: Total DLP (mGy-cm): 1436.63 FINDINGS: Right common carotid artery: No stenosis. No dissection or occlusion. Right internal carotid artery: Mild stenosis of the right carotid bulb and proximal right ICA is noted. Right external carotid artery: No occlusion or stenosis of the origin. Left common carotid artery: No stenosis. No dissection or occlusion. Left internal carotid artery: Mild stenosis of the left ICA origin. Left external carotid artery: No occlusion or stenosis of the origin. Right vertebral artery: Short segment moderate stenosis of the proximal right vertebral artery is appreciated. Mild stenosis of the distal right vertebral artery at the craniocervical junction is also noted. Left vertebral artery: No stenosis. No dissection or occlusion. Soft tissues: Normal. No significant soft tissue swelling. Bones/joints: Fjig-pu-wjzteshw degenerative changes are seen in the cervical spine. Moderate anterolisthesis of C5 over C6 is noted causing severe canal stenosis. No acute fracture. CT/CT angio headneck* [id number] IMPRESSION: 1. Moderate stenosis of the proximal right vertebral artery. 2. Mild stenoses of the right carotid bulb and proximal right ICA, left ICA origin, and distal right vertebral artery. 3. Moderate anterolisthesis of C5 over C6 and associated severe canal stenosis. REFERENCES: NASCET CRITERIA. The degree of internal carotid artery stenosis is based on NASCET criteria. Normal is no stenosis. Mild is less than 50% stenosis. Moderate is 50-69% stenosis. Severe is 70% to 99% stenosis. Total occlusion is no detectable patent lumen. Radiation Dose CTDIVOL = (mGy): DLP = 1436.63~1436.63 (mGy-cm) Dictated By:Kris Webster MDSigned By:Kris Webster MDSigned Date/Time:12/30/201936DD/ [address] [id number] ReportSigned Patient: Ana Butterfield #: [id number]: 1945cct#:[id number] e/Sex: 75 / FADM Date: 12/30/20Loc: [facility]/Bed:Attending Dr: Ordering Provider/Ordering MD: Jerry Sosa MD Date of Service: 12/30/20 Procedure(s): XR chest 1V portable [id number] Accession Number(s): [id number] Report Number: [id number] PROCEDURE INFORMATION: Exam: XR Chest Exam date and time: 12/30/2020 7:06 PM Age: 75 years old Clinical indication: Other: Stroke like symptoms TECHNIQUE: Imaging protocol: XR of the chest. Views: 1 view. COMPARISON: CR XR chest 1V portable [id number] 07/23/2020 9:53 AM FINDINGS: Lungs: The lungs are clear. Pleural spaces: Unremarkable. No pleural effusion. No pneumothorax. Heart/Mediastinum: Unremarkable. No cardiomegaly. Bones/joints: Chronic left humeral head/neck fracture is again noted. XR/XR chest 1V portable [id number] IMPRESSION: No acute cardiopulmonary abnormality. Dictated By:Kris Webster MDSigned By:Kris Webster MDSigned Date/Time:12/30/20D/ [address] [id number] Scan ReportSigned Patient: Ana Butterfield #: [id number]: 1945cct#:[id number]/Sex: 75 / FADM Date: 12/30/20Loc: ERRoom/Bed:Attending Dr: Ordering Provider/Ordering MD: Jerry Sosa MD Date of Service: 12/30/20 Procedure(s): CT head wo con* [id number] Accession Number(s): [id number] Report Number: [id number] PROCEDURE INFORMATION: Exam: CT Head Without Contrast Exam date and time: 12/30/2020 6:54 PM Age: 75 years old Clinical indication: Weakness, extremity and weakness, facial; Left; Patient HX: L sided defecits; Additional info: Possible CVA TECHNIQUE: Imaging protocol: Computed tomography of the head without contrast. Radiation optimization: All CT scans at this facility use at least one of these dose optimization techniques: automated exposure control; mA and/or kV adjustment per patient size (includes targeted exams where dose is matched to clinical indication); or iterative reconstruction. Other technique: STROKE PROTOCOL was implemented. COMPARISON: CT head wo con* [id number] 07/23/2020 12:27 PM RADIATION DOSE METRICS: Total DLP (mGy-cm): 974.99 FINDINGS: Brain: Mild atrophy and mild white matter chronic microvascular changes are noted. No hemorrhage or evidence of acute infarction is seen. Cerebral ventricles: No ventriculomegaly. Paranasal sinuses: Left frontal, ethmoid and maxillary sinusitis is appreciated. Mastoid air cells: Mild left mastoiditis is appreciated. Bones/joints: Unremarkable. No acute fracture. Soft tissues: Unremarkable. CT/CT head wo con* [id number] IMPRESSION: 1. No acute intracranial abnormality. 2. Moderate sinusitis and mild left mastoiditis. ASSESSMENT: ASPECTS ([place] Stroke Program Early CT Score) is 10. Radiation Dose CTDIVOL = (mGy): DLP = 974.99 (mGy-cm) Dictated By:Kris Webster MDSigned By:Kris Webster MDSigned Date/Time:12/30/20D/ 09 Critical Care Time Critical Care Time: Critical Care Time: Yes Total Critical Care Time: 36 Attestation: Given the high probability of imminent or life threatening deterioration of the patient?s condition without intervention, the patient was immediately assessed by myself and the nurse, and cardiac monitoring initiated. The patient was also placed on oxygen and continuous pulse oximetry initiated. During the course of the patient?s stay, I spent a considerable amount of time at the bedside performing serial re-evaluations of the patient?s hemodynamic and clinical status because of the recognized potential threat to life or limb in this condition. Clinical management of this patient involved high complexity decision making to assess, manipulate, and support vital organ system failure. I then had a chance to review all of the available laboratory and radiographic studies obtained today, and I also reviewed old records available to me at the time. Sequential vital signs were obtained. Critical care time noted below was time spent engaged in work directly related to the individual patient?s care, not including time performing procedures; however it does include time spent at the immediate bedside or elsewhere on the floor or unit. TOTAL CRITICAL CARE TIME ELAPSED: 36 minutess. BODY SYSTEM AT HIGHEST RISK: Hematological. Discharge Plan Discharge Patient Disposition: Admitted As Inpatient Admit Provider: Shelia Beckwith Clinical Impression: Acute hyperkalemia, Elevated troponin I level, Elevated BUN, Hyperkalemic periodic paralysis, Mastoiditis Altered mental status Qualifiers: Altered mental status type: stupor Qualified Code(s): R40.1 - Stupor Acute renal failure Qualifiers: Acute renal failure type: unspecified Qualified Code(s): N17.9 - Acute kidney failure, unspecified Condition: Stable Coding Level of Care Code ED Fire Supervisor for Lillian Cabrera
[2020-12-30 20:13] LABS: Lactate (Lactic Acid level) 1.1 mmol/L (0.5-2.2)
[2020-12-30 20:14] LABS: Anion Gap 26.4 (5-19); Calcium 9.3 mg/dL (8.5-10.5); Carbon Dioxide 16 mmol/L (22-29); Chloride 97 mmol/L (98-107); Glucose 106 mg/dL (65-115); Osmolality Calculated 301 mOsm/kg (285-295); Sodium 132 mmol/L (136-145)
[2020-12-30 20:16] LABS: Blood Urea Nitrogen 86 mg/dL (8-23); Potassium 7.4 mmol/L (3.5-5.1)
[2020-12-30] MEDS: FUROsemide 10 mg/mL SDV 4mL 40 MG IVP (20:46)
--- NOTE | 2020-12-30 20:57 | ECG_ITS ---
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 Measurements Intervals [place] Rate: 75 P: 30 CT: 194 QRS: -33 QRSD: 86 T: 70 QT: 379 QTc: 425 Interpretive Statements SINUS RHYTHM LEFT AXIS DEVIATION [QRS AXIS < -30] Compared to ECG 12/30/2020 19:17:15 Supraventricular rhythm no longer present ST (T wave) deviation no longer present Electronically Signed On 01-01-2021 21:38:25 CDT by Nikki Washington M.D. [email or web address]
--- NOTE | 2020-12-30 21:06 | PM.CONSULT ---
Providers/Reason For Consult Consulting Physician/Specialty*: Nephrology Reason for Consult*: SIMA and HyperK Primary Care Provider: Víctor Morris MD History of Present Illness History of Present Illness Thank you for consultation, today had the pleasure of reviewing Ms Butterfield, a 75-year-old female for evaluation of renal failure, critical hyperkalemia. Her gives a history as she is currently noncommunicative, barely arousable. He reports that she has not felt well for the last three or 4 days, not eating too much and sleeping excessively i.e. typically she goes to bed at 10:00 and wakes at 1 PM in the afternoon. This is unusual for her. She has not been eating or drinking much. She took a nap this afternoon at 3 PM, her went to wake her up, she was not arousable and so he called 911 was brought to the emergency room. On arrival here a stroke code was initially called, no TPA was given. No acute findings were found on CT scan. 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 On initial evaluation of her labs, her potassium came back at 7.9, after some temporizing therapy came down to 7.4. Her creatinine is also 4.3. A Armas catheter was placed with minimal urine output. As an outpatient she takes a combination of lisinopril/HCTZ, Lasix, naproxen. She may also take something [id number] for pain as well, but this is believed to be Tylenol. Her denies any knowledge of prior history of acute or chronic kidney disease. On historic available labs, in August showed a serum creatinine of 2.3 which would equate to a GFR of 20 mL/min. Seems that she has had some history of chronic kidney disease in this range. She has never seen a kidney specialist or required hemodialysis. There is no extremity edema, shortness of breath or other hypervolemic symptoms. Hemodynamically she is stable following hospitalization has not required any vasopressor therapy. She still received intravenous fluid. Review of Systems General: Reports: ROS unobtainable due to medical condition Meds/Allergies Home Medications and Allergies Home Medications Medication Instructions Recorded Confirmed Last Taken Type Prevagan 1 tab PO DAILY 05/19/20 08/11/20 07/22/20 History betamethasone dipropionate See Rx Instructions .ROUTE .COMPLEX 05/19/20 08/11/20 Unknown History bupropion HCl 150 mg PO DAILY@1000 05/19/20 08/11/20 07/22/20 History furosemide 40 mg PO DAILY@1000 05/19/20 08/11/20 07/22/20 History lisinopril-hydrochlorothiazide 1 tab PO DAILY@1000 05/19/20 08/11/20 07/22/20 History naproxen 375 mg PO TID PRN 05/19/20 08/11/20 05/19/20 History pantoprazole 40 mg PO DAILY@1000 05/19/20 08/11/20 07/22/20 History potassium chloride 20 meq PO BID@1000,1700 05/19/20 08/11/20 07/22/20 History triamcinolone acetonide See Rx Instructions .ROUTE .COMPLEX 05/19/20 08/11/20 Unknown History 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 #1 ea NS 05/24/20 08/11/20 Unknown Rx metoprolol tartrate 50 mg PO BID #30 tab 07/23/20 08/11/20 Unknown Rx levofloxacin 500 mg tablet 500 mg PO DAILY 14 Days #14 tab 08/09/20 08/11/20 Unknown Rx Allergies Allergy/AdvReac Type Severity Reaction Status Date / Time No Known Allergies Allergy Verified 12/30/20 19:16 PFSH Acute PFSH: Medical History (Updated 08/15/20 @ 22:28 by Jake Luz DPM) History of colon cancer Surgical History (Updated 08/15/20 @ 22:27 by Jake Luz DPM) History of laparoscopic appendectomy Social History Smoking and tobacco status: former smoker Quit status (tobacco): has quit using tobacco Second hand smoke exposure: No Alcohol intake: never Female Reproductive History: Date of last menstrual period: 07/13/20 Vitals/I&O/Wt Last Vital Signs Temp 97.8 F 12/30/20 19:06 Pulse 92 12/30/20 21:04 Resp 16 12/30/20 21:04 BP 167/86 12/30/20 21:04 Pulse Ox 100 12/30/20 21:04 12/30/20 12/30/20 12/30/20 06:59 14:59 22:59 Intake Total 70 / 70 Balance 70 / 70 Weight last 48 hrs Weight 58.423 kg Physical Exam Narrative: EXAM NARRATIVE: Constitutional: Non interactive HEENT: Wet mucosa, no jvp, non icteric Lungs: Bilaterally clear without discernible wheeze or rales in all lung zones CVS: S1 S2, no murmurs Abdo: Soft, BS ok Ext 4: Minimal edema, peripheral perfusion with no cyanosis Neurological: Non interactive Urinary Catheter Management^: Armas: Cath Placed During This Visit: yes Urinary Catheter Date of Insertion: 12/30/20 Urinary Catheter Time of Insertion: 21:03 Data Micro: Micro: Microbiology 12/30/20 19:49 Blood Culture - Pr eliminary Blood SPECIMEN COLLE YOANNA 12/30/20 19:49 Blood Culture - Pr eliminary Blood SPECIMEN [facility] A&P Additional A&P Information 1. Renal failure In all likelihood she has at least stage IV chronic kidney disease, likely secondary to hypertension and renovascular disease. She likely has severe intravascular volume depletion from poor p.o. intake in the setting of combination loop and thiazide diuretics, in the setting of combination NSAIDs and MERISSA inhibitor to reduce both glomerular blood flow and glomerular pressure. Other diagnoses are being considered, we will do the work-up to include renal sonogram, urinalysis, fractional excretion of sodium, uric acid, CPK, TSH. I will broaden serological work-up depending upon the results of this initial evaluation and response to supportive therapy. Given the critical hyperkalemia this evening, will proceed with hemodialysis. 2K bath, minimal ultrafiltration, 3-hour treatment. Normal saline, 1 L bolus followed by 125 mL/h infusion Strict ins and outs A.m. labs Avoid usual nephrotoxic agents Dose medication for GFR less than 15 on dialysis. 2. Electrolytes Hyperkalemia: Secondary to renal failure, supplemental potassium, MERISSA inhibitor. She has received combination temporizing therapy and dialysis will be definitive as well as recovery and druze of renal function. Anion gap metabolic acidosis with normal lactate, likely secondary to uremia, continue supportive therapy, this should correct by itself. Other chemistries appear mildly aberrant, noncritical and I will continue to follow. 3. AMS Given the correlating temporal relationship with the critical biochemical abnormalities it is almost certain that these two are related i.e. she has uremic encephalopathy and severe muscle weakness secondary to hyperkalemia. Of note CT scan of the head was unremarkable for acute changes, however CTA just demonstrates cerebrovascular disease She did not receive TPA Serial neuro checks as we correct and restore renal function and correct biochemical abnormalities. Case discussed with bedside RN, competitive intelligence manager, Dr. Sosa Thank you for consultation, as always it is a pleasure to follow these cases with you Exam and interview performed with aid of bedside RN using telemedicine Time spent 20 min inc > 50% of time in face to face counseling Wade Oliver MD [facility] Renal [place] [facility] [phone] Consult Attestations Medical Necessity Statement: eval for SIMA Coding Level of Care Code Acute Fire Support Man for Chg Deborah
[2020-12-30] MEDS: sodium chloride 0.9% 1,000 ML 150 ML IV (21:08)
[2020-12-30 21:19] LABS: Troponin T (5th) Once 76 ng/L (0-10)
[2020-12-30 22:23] LABS: Glucose Point of Care 126 mg/dL (70-110)
[2020-12-30 22:30] LABS: Urine Random Sodium 40 mmol/L
[2020-12-30 22:41] LABS: Creatinine Urine, Random 46 mg/dL (28-217)
--- NOTE | 2020-12-30 23:07 | P.HP_ITS ---
Providers/Chief Complaint Admitting Physician: Shelia Beckwith MD Primary Care Provider: Víctor Morris MD Chief Complaint: AMS/ INCREASED WEAKNESS/ STROKE LIKE SX History of Present Illness Ana Butterfield is a 75 year old female with a past medical history of hypertension, CKD, brought to the hospital today as she was reportedly unresponsive since 5. At home. Per patient's who is at the bedside, patient has been experiencing increased somnolence, lethargy, poor p.o. intake, excessive itching over the past 4 to 5 days. She has been sleeping up to 10 to 12 hours a day which is unusual for her. This afternoon she went to nap around 3 PM, and on trying to wake her at 5 PM, the did not have any significant response. She was only able to open eyes but not have any other conversation. She was therefore brought into the ER. Initial concern was that for stroke. NIH stroke scale greater than 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 Above findings were discussed with [facility] neurology by Dr. Sosa from ER, no TPA or thrombolysis was recommended at this time. In the interim, her labs resulted with multiple abnormalities including a creatinine of 4.3, potassium of 7.9. No history of UTIs or nephrolithiasis in the past. Per she has not been diagnosed with any kidney issues in the past, however then also states that her primary ca re physician Dr. Morris had referred her to see a local pediatric ophthalmologist, she has an appointment in February. She has not been recommended dialysis at any point in the past. At this time patient's mental status is that she opens her eyes to calling name and tapping, however is otherwise unable to form any words or sentences. He is planned to start urgent dialysis soon. Review of Systems General: Reports: ROS unobtainable due to mental status Medications/Allergies Home Medications Medication Instructions Recorded Confirmed Last Taken Type Prevagan 1 tab PO DAILY 05/19/20 08/11/20 07/22/20 History betamethasone dipropionate See Rx Instructions .ROUTE .COMPLEX 05/19/20 08/11/20 Unknown History bupropion HCl 150 mg PO DAILY@1000 01/08/11/20 07/22/20 History furosemide 40 mg PO DAILY@1000 05/19/20 08/11/20 07/22/20 History lisinopril-hydrochlorothiazide 1 tab PO DAILY@1000 05/19/20 08/11/20 07/22/20 History naproxen 375 mg PO TID PRN 05/19/20 08/11/20 05/19/20 History pantoprazole 40 mg PO DAILY@1000 05/19/20 08/11/20 07/22/20 History potassium chloride 20 meq PO BID@1000,1700 05/19/20 08/11/20 07/22/20 History triamcinolone acetonide See Rx Instructions .ROUTE .COMPLEX 05/19/20 08/11/20 Unknown History 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 #1 ea NS 05/24/20 08/11/20 Unknown Rx metoprolol tartrate 50 mg PO BID #30 tab 07/23/20 08/11/20 Unknown Rx levofloxacin 500 mg tablet 500 mg PO DAILY 14 Days #14 tab 08/09/20 08/11/20 Unknown Rx Allergies Allergy/AdvReac Type Severity Reaction Status Date / Time No Known Allergies Allergy Verified 12/30/20 19:16 PFSH Acute PFSH: Medical History (Updated 12/31/20 @ 00:57 by Shelia Beckwith MD) History of colon cancer Hypertension Surgical History History of laparoscopic appendectomy Social History Smoking and tobacco status: former smoker Quit status (tobacco): has quit using tobacco Second hand smoke exposure: No Alcohol intake: never Female Reproductive History: Date of last menstrual period: 07/13/20 Vitals/I&O/Wt Last Vital Signs Temp 97.8 F 12/30/20 19:06 Pulse 87 12/30/20 22:44 Resp 12 12/30/20 22:44 BP 173/84 12/30/20 22:44 Pulse Ox 100 12/30/20 22:44 12/30/20 12/30/20 12/31/20 14:59 22:59 06:59 Intake Total 70 / 70 Balance 70 / 70 Weight last 48 hrs Weight 58.423 kg Physical Exam Narrative: EXAM NARRATIVE: General: Lethargic, laying in bed, opens eyes to calling name, however unable to tell me her name of much else. HEENT: pupils bilaterally equal and reactive Chest: Normal vesicular breath sounds, no added sounds, equal good air entry bilaterally CVS: S1-S2 regular, no murmurs, no tachycardia, no gallops, no rubs Abdomen: Soft, nontender, no organomegaly, bowel sounds present Neuro: Opens eyes to calling name, does not move any extremities to command at this time. Extremities: Multiple scratch pena, presumably from itching present all over the abdomen and lower extremities. Urinary Catheter Management^: Armas: Cath Placed During This Visit: yes Urinary Catheter Date of Insertion: 12/30/20 Urinary Catheter Time of Insertion: 21:03 Data : 12/30/20 18:57 12/30/20 23:37 Micro: Microbiology 12/30/20 19:49 Blood Culture - Preliminary Blood SPECIMEN COLLECTED 12/30/20 19:49 Blood Culture - Preliminary Blood SPECIMEN COLLECTED A&P Assessment and plan (1) Acute renal failure: Likely to be SIMA on CKD given review of baseline creatinine shows numbers between 1.8-2.3. Additionally reports patient had recently been referred to nephrology and had an appointment scheduled for February. Currently SIMA may be precipitated by medications including lisinopril HCTZ, NSA IDs better on the medication list. Poor p.o. intake may have contributed. reports 2-3 episodes of diarrhea 2 days ago, which are now resolved. Check CPK level to evaluate for rhabdomyolysis. Nephrology has been consulted from the ER. Plan to start urgent dialysis tonight. Currently running 125 cc normal saline Hold HCTZ, lisinopril, oral NSAIDs at this time. Status: Acute Qualifiers: Acute renal failure type: unspecified Qualified Code(s): N17.9 - Acute kidney failure, unspecified (2) Altered mental status: May be secondary to uremic encephalopathy. Possibility of CVA cannot be completely excluded, however would wait to initiate dialysis and monitor for improvement in mental status. Patient may need an MRI once stabilized. In the interim we will start aspirin 81 mg p.o. daily Status: Acute Qualifiers: Altered mental status type: stupor Qualified Code(s): R40.1 - Stupor (3) Acute hyperkalemia: Secondary to acute renal failure. Starting dialysis soon. She has already received calcium gluconate, insulin dextrose and nebulization. Status: Acute Additional A&P Information Full code DVT prophylaxis Heparin subcu every 12 hours. Attestations Medical Necessity Statement*: Expect greater than 2 midnight admission for above defined care. Coding Level of Care Code Acute Extension Service Specialist for [facility] Fwd Diagnoses Acute renal failure N17.9 Acute renal failure type: unspecified Altered mental status R40.1 Altered mental status type: stupor Acute hyperkalemia E87.5
[2020-12-30] MEDS: famotidine 20 mg/2 mL INJ IVP (23:36)
[2020-12-31] VITALS (45 sets, daily range): BP systolic 82–189; BP diastolic 43–109; PULSE 66–96; RESP 7–20; TEMP 36.4–36.6; O2SAT 95–100
[2020-12-31 00:20] LABS: Hepatitis A Antibody IgM Non-Reactive (Nonreactive); Hepatitis B Core IgM Non-Reactive (Nonreactive); Hepatitis B Surface Antigen Non-Reactive (Nonreactive); Hepatitis C Virus Antibody Non-Reactive (Nonreactive)
[2020-12-31 00:21] LABS: Blood Urea Nitrogen 71 mg/dL (8-23); Calcium 9.8 mg/dL (8.5-10.5); Carbon Dioxide 17 mmol/L (22-29); Chloride 96 mmol/L (98-107); Creatine Phosphokinase 46 U/L (26-192); Glucose 108 mg/dL (65-115); Osmolality Calculated 305 mOsm/kg (285-295); Sodium 137 mmol/L (136-145); Thyroid Stimulating Hormone 1.81 uIU/mL (0.27-4.20); Uric Acid 5.1 mg/dL (2.4-5.7)
--- NOTE | 2020-12-31 01:02 | USCV_ITS ---
Ana Butterfield Age: 75 Gender: F : 1945 Exam Date: 12/31/2020 08:18 Ordering Phys: Shelia Beckwith MD Technologist: Tamiko Calhoun Exam Location: [facility] Indication: CVA BP: 127 / 63 HR: 87 Rhythm: Sinus Technical Quality: Fair MEASUREMENTS (Male / Female) Normal Values 2D ECHO LV Diastolic Diameter PLAX 3.6 cm 4.2 - 5.9 / 3.9 - 5.3 cm LV Systolic Diameter PLAX 2.0 cm LV Chamber Size 3.1 cm IVS Diastolic Thickness 1.2 cm 0.6 - 1.0 / 0.6 - 0.9 cm IVS Systolic Thickness 1.6 cm LVPW Diastolic Thickness 0.8 cm 0.6 - 1.0 / 0.6 - 0.9 cm LVPW Systolic Thickness 1.1 cm RV Chamber Size 2.1 cm LVOT Diameter 1.9 cm LV Ejection Fraction 2D Teich 76.6 % LV Ejection Fraction MOD 2C 62.1 % LV Ejection Fraction 2C AL 66.5 % LA Diameter 2.3 cm LA Width 2.8 cm LA Height 4.1 cm RA Width 1.8 cm RA Height 4.3 cm Aorta at Sinotubular Diameter 2.4 cm M-MODE LV Diastolic Diameter MM 5.1 cm 4.2 - 5.9 / 3.9 - 5.3 cm LV Systolic Diameter MM 2.9 cm LV Ejection Fraction MM Teich 74.2 % IVS Diastolic Thickness MM 1.8 cm 0.6 - 1.0 / 0.6 - 0.9 cm IVS Systolic Thickness MM 1.9 cm LVPW Diastolic Thickness MM 1.7 cm 0.6 - 1.0 / 0.6 - 0.9 cm LVPW Systolic Thickness MM 1.8 cm RV Diastolic Diameter MM 0.9 cm Aortic Annulus Diameter 2.9 cm LA Ao Ratio MM 0.8 MV E Point Septal Separation 0.6 cm DOPPLER AV Peak Velocity 159.0 cm/s LVOT Peak Velocity 114.0 cm/s AV Area Cont Eq vti 2.0 cm squared AV Area Cont Eq pk 1.9 cm squared MV Area PHT 5.0 cm squared Mitral E to A Ratio 0.6 MV E' Velocity 38.0 cm/s Mitral E to MV E' Ratio 9.6 Mitral E to LV E' Lateral Ratio 7.6 Mitral E to LV E' Septal Ratio 13.6 TR Peak Velocity 251.6 cm/s TR Peak Gradient 25.3 mmHg TR Mean Velocity 213.1 cm/s TR Mean Gradient 18.7 mmHg TR Velocity Time Integral 71.9 cm TV Peak E Velocity 49.0 cm/s Right Atrial Pressure 3.0 mmHg Pulmonary Artery Systolic Pressu 28.3 mmHg PV Peak Velocity 118.0 cm/s RV Acceleration Time 0.1 s RV Ejection Time 0.3 s RV AcT/ET 0.2 FINDINGS Left Ventricle Normal left ventricular size, systolic function and wall thickness, with no regional wall motion abnormalities. Left ventricular ejection fraction is estimated at 65 %. Grade I diastolic dysfunction (abnormal relaxation filling pattern), normal to mildly elevated filling pressures. Right Ventricle Normal right ventricular size and systolic function. Right ventricular systolic pressure 28.3 mmHg. Right Atrium Normal right atrial size. Right atrial pressure estimated at 3 mm Hg. Left Atrium Mildly increased left atrial size. Mitral Valve Mildly thickened mitral valve. No mitral valve stenosis. No mitral valve regurgitation. Aortic Valve Mildly thickened trileaflet aortic valve. No aortic valve stenosis. Trace to mild aortic valve regurgitation. Tricuspid Valve Structurally normal tricuspid valve. No tricuspid valve stenosis. Trace to mild tricuspid valve regurgitation. Pulmonic Valve Pulmonic valve not well visualized. Pericardium No pericardial effusion. Aorta Normal size aortic root and proximal ascending aorta. Normal sized inferior vena cava. CONCLUSIONS 1. Normal left ventricular size, systolic function and wall thickness, with no regional wall motion abnormalities. Left ventricular ejection fraction is estimated at 65 %. Grade I diastolic dysfunction (abnormal relaxation filling pattern), normal to mildly elevated filling pressures. 2. Mildly increased left atrial size. 3. Trace to mild aortic valve regurgitation. 4. Pulmonary artery pressure estimated at 29 mm Hg. 5. No prior similar studies to compare. Nikki Washington MD (Electronically Signed) Final Date: 31 December 2020 14:20 S
--- NOTE | 2020-12-31 01:20 | PC.NURSE ---
Pt was started on a levo drip. Pressures were 66/38 before starting the drip. After 10 minutes of the levo at 8mcg her pressures have come up to 156/59.
--- NOTE | 2020-12-31 01:23 | PC.NURSE ---
Pt pressures are 156/60. Levo drip was titrated to 7mcg per protocol. Will reassess bp again after 10 minutes.
[2020-12-31] MEDS: heparin 5,000 unit/mL INJ 1 mL 5000 UNIT SUBCUT ×2 (01:30→11:25)
[2020-12-31 05:14] LABS: Hematocrit 22.9 % (37.0-47.0); Hemoglobin 7.3 g/dL (11.5-15.3); Lymphocytes # 0.5 10^3/uL (0.8-4.8); Lymphocytes % 4.4 %; Mean Corpuscular HGB Conc 31.9 g/dL (30.0-36.0); Mean Corpuscular Hemoglobin 31.1 pg (28.0-34.0); Mean Corpuscular Volume 97.4 fl (81-99); Mean Platelet Volume 10.7 fL (7.4-10.4); Monocytes # 0.4 10^3/uL (0.2-0.9); Monocytes % 3.7 %; Neutrophils # 9.27 10^3/uL (1.8-7.7); Neutrophils % 91.3 %; Nucleated Red Blood Cells % 0 %; Platelet Count 286 10^3/cmm (130-400); Red Blood Count 2.35 10^6/uL (4.1-5.3); Red Cell Distribution Width 14.8 % (12.1-15.1); White Blood Count 10.2 10^3/uL (4.0-10.0)
[2020-12-31 05:36] LABS: Alanine Aminotransferase 10 U/L (0-33); Albumin Level 3.2 g/dL (3.5-5.2); Alkaline Phosphatase 83 IU/L (35-105); Anion Gap 26.9 (5-19); Aspartate Amino Transferase 17 U/L (0-32); Blood Urea Nitrogen 24 mg/dL (8-23); Calcium 8.2 mg/dL (8.5-10.5); Carbon Dioxide 18 mmol/L (22-29); Chloride 96 mmol/L (98-107); Globulin 2.5 g/dL (1.3-4.6); Glucose 140 mg/dL (65-115); Osmolality Calculated 290 mOsm/kg (285-295); Potassium 3.9 mmol/L (3.5-5.1); Sodium 137 mmol/L (136-145); Total Bilirubin 0.2 mg/dL (0.15-1.2); Total Protein 5.7 g/dL (6.6-8.7)
--- NOTE | 2020-12-31 06:32 | PM.PN ---
Subjective Subjective: Interval history: not answering appropriately. however, more awake then last night- per RN. required some levophed during dialysis- now off. Medications: Reviewed: Yes Medication Review Details: Current Medications Acetaminophen (Acetaminophen 325 Mg Tablet) 650 mg PO Q6H PRN PRN Reason: Mild/Mod Pain Or Temp >/= 101 Aspirin (Aspirin 81 Mg Ec Tablet) 81 mg PO DAILY STEVEN Famotidine (Famotidine 20 Mg/2 Ml Inj) 20 mg IVP Q12H STEVEN Last Admin: 12/30/20 23:36 Dose: 20 mg Documented by: Heparin Sodium (Beef Lung) (Heparin 5,000 Unit/Ml Inj 1 Ml) 5,000 unit SUBCUT Q12H STEVEN Last Admin: 12/31/20 01:30 Dose: 5,000 unit Documented by: Sodium Chloride (Sodium Chloride 0.9%) 1,000 mls @ 150 mls/hr IV .Q6H40M STEVEN Last Infusion: 12/31/20 03:54 Dose: Infused Documented by: Sodium Chloride (Sodium Chloride 0.9%) 1,000 mls @ 150 mls/hr IV .Q6H40M STEVEN Norepinephrine Bitartrate 4 mg (/ Dextrose) 254 mls @ 0 mls/hr IV .Q0M STEVEN; Protocol Last Titration: 12/31/20 02:59 Dose: 0 mcg/min, 0 mls/hr Documented by: Metoprolol Tartrate (Metoprolol Tartrate 50 Mg Tablet) 50 mg PO BID STEVEN Ondansetron HCl (Ondansetron 2 Mg/Ml Sdv 2 Ml) 4 mg IVP Q8H PRN PRN Reason: vomiting, or N/V if npo Vitals/I&O/Wt Last Vital Signs Temp 97.9 F 12/31/20 03:22 Pulse 85 12/31/20 04:37 Resp 17 12/31/20 04:37 BP 127/63 12/31/20 04:37 Pulse Ox 96 12/31/20 04:37 12/30/20 12/30/20 12/31/20 14:59 22:59 06:59 Intake Total / 1638.037 / 1708.037 Output Total 273 / 273 Balance 1365.037 / 1435.037 Weight last 48 hrs Weight 58.423 kg Physical Exam Narrative: EXAM NARRATIVE: in bed, NARD vss heent- nc/at, eomi, anicteric neck supple lungs clear b/l heart reg abd soft, nt, nd, +BS ext no edema left femoral dialysis access neuro- responds to pain and voice- disoriented Urinary Catheter Management^: Armas: Cath Placed During This Visit: yes Urinary Catheter Date of Insertion: 12/30/20 Urinary Catheter Time of Insertion: 21:03 Data : 12/31/20 04:58 12/31/20 04:58 Micro: Microbiology 12/30/20 19:49 Blood Culture - Preliminary Blood SPECIMEN COLLECTED 12/30/20 19:49 Blood Culture - Preliminary Blood SPECIMEN COLLECTED A&P Additional A&P Information 1. Renal failure a. CKD stage 3b- baseline cr 1.8- 2.3 mg/dl - likely from hypertension and renovascular disease. b. SIMA- prerenal azotemia vs ATN in from poor p.o. intake in the setting of combination loop and thiazide diuretics, in the setting of combination NSAIDs and MERISSA inhibitor to reduce both glomerular blood flow and glomerular pressure. - renal sonogram pending - urinalysis- w/ 1+ ketones, 10-15 hyaline casts -ur na 40 on diuretics- difficult to interpret -monitor uop and chemistries- and monitor for further dialysis needs 2. Hyperkalemia: Secondary to renal failure, supplemental potassium, MERISSA inhibitor. -improved w/ dialysis 3. met acidosis- AG was 21, now 23- change ivf to bicarb 4. anemia- check iron studies -consider ALEN- except for vertebral artery disease 5. AMS Given the correlating temporal relationship with the critical biochemical abnormalities it is almost certain that these two are related i.e. she has uremic encephalopathy and severe muscle weakness secondary to hyperkalemia. Of note CT scan of the head was unremarkable for acute changes, however CTA just demonstrates cerebrovascular disease She did not receive TPA Serial neuro checks as we correct and restore renal function and correct biochemical abnormalities. Case discussed with bedside RN Exam and interview performed with aid of bedside RN using telemedicine Time spent 30 min inc > 50% of time in face to face counseling Attestations Medical Necessity Statement*: sima, ckd, ams Time Spent in Patient Care: 16 - 35 minutes Coding Level of Care Code Acute Human Performance Consultant for Lillian Cabrera
--- NOTE | 2020-12-31 06:48 | USR_ITS ---
PROCEDURE INFORMATION: Exam: US Retroperitoneal; Complete; Kidneys and Bladder Exam date and time: 12/31/2020 6:48 AM Age: 75 years old Clinical indication: Abnormal findings; Abnormal lab test; Abnormal kidney function lab tests; Additional info: Bipin TECHNIQUE: Imaging protocol: Real-time ultrasound of the retroperitoneum with image documentation. Complete exam focused on the kidneys and bladder. COMPARISON: CT lumbar spine wo con* [id number] 05/19/2020 11:08 PM FINDINGS: Right kidney: The right kidney measures 7.3 x 4.5 x 3.1 cm. Advanced renal cortical atrophy. The renal cortex measures 0.52 cm. No hydronephrosis. No mass. No calcification identified. A brief color Doppler examination of the right kidney was performed showing normal color shifts. Left kidney: The left kidney measures 8.8 x 5.3 x 4.1 cm. Advanced renal cortical atrophy. The renal cortex measures 0.83 cm. A brief color Doppler examination of the left kidney was performed showing normal color shifts. Spleen: Unremarkable spleen as visualized. Aorta: The proximal abdominal aorta measures 1.3 cm. The mid abdominal aorta measures 1.1 cm. The distal infrarenal abdominal aorta is obscured by bowel gas. Urinary bladder: The urinary bladder is drained by a Armas catheter. The urinary bladder is decompressed and difficult to assess. US/US renal BI* [id number] IMPRESSION: 1. Bilateral renal atrophy. 2. Limitations imaging urinary bladder as above.
--- NOTE | 2020-12-31 07:30 | PC.NURSE ---
admitted to icu 7 lethargic but some slight verbal response noted opens eyes .. noted multiple scratches over upper body iv site left arm and left ac.. also noted right femoral dialysis cath. cunningham thony urine noted
[2020-12-31] MEDS: aspirin 81 mg EC Tablet PO (08:41)
[2020-12-31] MEDS: metoprolol tartrate 50 mg Tablet PO ×2 (08:41→17:31)
[2020-12-31] MEDS: b-complex-vitamin c Tablet 1 EACH PO (08:41)
[2020-12-31 09:51] LABS: ABG PCO2 33.2 mmHg (35-45); Alveolar-Arterial Oxygen Gradi 0.3 mmHg (5-10); Arterial Blood Gas Hematocrit 26.6 % (37-47); Base Excess ABG -3.5 mmol/L (-2.0-2.0); Blood Gas Allen Test Pos; Blood Gas Operator Identificat CAK; Blood Gas Sample Site Radial, left; Blood Gas Sample Type Arterial; Carboxyhemoglobin 0.8 %THgb (0.4-20.1); HCO3 ABG 20.7 mmol/L (22-26); Ionized Calcium Level - ABG 1.2 mmol/L (1.1-1.4); Methemoglobin 1.3 % (0.4-1.5); Oxygen Device ROOM AIR; Oxygen Saturation ABG 99.1; Potassium Level - ABG 3.9 mmol/L (3.5-5.0); Total Hemoglobin 8.7 g/dL (12-16)
[2020-12-31] MEDS: famotidine 20 mg/2 mL INJ IVP (11:25)
[2020-12-31 12:22] LABS: Anion Gap 23.2 (5-19); Blood Urea Nitrogen 27 mg/dL (8-23); Carbon Dioxide 22 mmol/L (22-29); Chloride 97 mmol/L (98-107); Glucose 95 mg/dL (65-115); Osmolality Calculated 291 mOsm/kg (285-295); Potassium 4.2 mmol/L (3.5-5.1); Sodium 138 mmol/L (136-145)
[2020-12-31 12:31] LABS: Hepatitis C Virus Antibody Non-Reactive (Nonreactive)
--- NOTE | 2020-12-31 12:37 | PM.PN ---
Subjective Subjective: Interval history: Status post dialysis Potassium and creatinine improved Patient is waking up, has right-sided weakness Able to tell me her name Currently hemodynamically stable Saturating well on room air Vitals/I&O/Wt Last Vital Signs Temp 97.9 F 12/31/20 03:22 Pulse 88 12/31/20 12:00 Resp 19 H 12/31/20 12:00 BP 154/58 12/31/20 12:00 Pulse Ox 100 12/31/20 12:00 12/30/20 12/31/20 12/31/20 22:59 06:59 14:59 Intake Total 70 / 1638.037 / 1708.037 Output Total 273 / 273 Balance 70 / 70 1365.037 / 1435.037 Weight last 48 hrs Weight 58.423 kg Physical Exam Narrative: EXAM NARRATIVE: Patient is oriented to herself Opens her eyes spontaneously Noticed right-sided weakness Able to do some movement at horizontal level of left arm EOMI, PERRLA No dysarthria No facial asymmetry She has good tone of lower extremity, she not able to follow commands, she keeps repeating her name Bilateral breath sounds currently saturating well on room air S1, S2 Multiple laceration and bruises of extremities Urinary Catheter Management^: Armas: Cath Placed During This Visit: yes Reason for Continuing Indwelling Catheter: Accurate Measurement of Urinary Output in Critically Ill Patients Urinary Catheter Date of Insertion: 12/30/20 Urinary Catheter Time of Insertion: 21:03 Data : 12/31/20 04:58 12/31/20 11:14 Micro: Microbiology 12/30/20 19:49 Blood Culture - Preliminary Blood SPECIMEN COLLECTED 12/30/20 19:49 Blood Culture - Preliminary Blood SPECIMEN COLLECTED A&P Assessment and plan (1) Altered mental status: Status: Acute Qualifiers: Altered mental status type: stupor Qualified Code(s): R40.1 - Stupor (2) Acute hyperkalemia: Status: Acute (3) Acute renal failure: Status: Acute Qualifiers: Acute renal failure type: unspecified Qualified Code(s): N17.9 - Acute kidney failure, unspecified (4) Hyperkalemic periodic paralysis: Status: Acute Additional A&P Information Altered mental status Uremic encephalopathy Hyperkalemia related paralysis Concern for CVA, TPA was not given code stroke was called NIH was > 20 She has right-sided weakness, minimal movement of left side CTA head and neck showed concerning diffuse atherosclerotic changes of internal carotid and middle cerebral, posterior communicating artery, vertebral artery will request MRI tomorrow if she is able to cooperate SIMA secondary to nephrotoxic agents diarrhea poor p.o. intake Creatinine improving, after dialysis Hyperkalemia: Status post dialysis Stop nephrotoxic agents Metabolic acidosis currently on bicarb drip as per nephro Acute normocytic anemia Hemoglobin 10.3 will hold heparin for now Iron studies panel sent Check FOBT Patient is more awake and alert will start renal dialysis diet Holding heparin because of anemia Full code Can be transferred out of ICU if stays stable Attestations Medical Necessity Statement*: Continue ICU management she can be transferred out of ICU if stays clinically stable Time Spent in Patient Care: less than 15 minutes Coding Level of Care Code Acute Hydrogen Power Plant Engineer for Lillian Cabrera Diagnoses Altered mental status R40.1 Altered mental status type: stupor Acute hyperkalemia E87.5 Acute renal failure N17.9 Acute renal failure type: unspecified Hyperkalemic periodic paralysis G72.3
--- NOTE | 2020-12-31 12:56 | CTR_ITS ---
PROCEDURE INFORMATION: Exam: CT Abdomen And Pelvis Without Contrast Exam date and time: 12/31/2020 12:56 PM Age: 75 years old Clinical indication: Other: Diarrhea; Additional info: Diarrhea, anemia TECHNIQUE: Imaging protocol: Computed tomography of the abdomen and pelvis without contrast. Radiation optimization: All CT scans at this facility use at least one of these dose optimization techniques: automated exposure control; mA and/or kV adjustment per patient size (includes targeted exams where dose is matched to clinical indication); or iterative reconstruction. COMPARISON: US renal BI* [id number] 12/31/2020 8:03 AM RADIATION DOSE METRICS: Total DLP (mGy-cm): 1168.9 FINDINGS: Liver: Normal. No mass. Gallbladder and bile ducts: Cholecystectomy. Nondilated biliary system. Pancreas: Normal. No ductal dilation. Spleen: Splenic granulomas without splenomegaly. Adrenal glands: Normal. No mass. Kidneys and ureters: Atrophic renal parenchyma. No hydronephrosis. Stomach and bowel: Rectosigmoid colonic anastomosis with unremarkable appearance. Moderate fecal volume diffusely. No inflammatory bowel wall thickening. Negative for bowel obstruction. Negative for bowel perforation. Appendix: No evidence of appendicitis. Intraperitoneal space: Unremarkable. No free air. No significant fluid collection. Vasculature: Diffuse atherosclerosis. No aneurysm. Lymph nodes: Unremarkable. No enlarged lymph nodes. Urinary bladder: Armas catheter in the bladder. Reproductive: Unremarkable as visualized. Bones/joints: Inferior endplate vertebral fracture of L1 of indeterminate chronicity. Soft tissues: Unremarkable. CT/CT abdomen pelvis wo con [id number] IMPRESSION: Negative for acute abdominopelvic abnormality. Radiation Dose CTDIVOL = (mGy): DLP = 1168.9 (mGy-cm)
[2020-12-31 13:41] LABS: Hematocrit 24.4 % (37.0-47.0); Hemoglobin 7.9 g/dL (11.5-15.3)
[2020-12-31 14:12] LABS: Ammonia 20 umol/L (11-51)
[2020-12-31 14:16] LABS: Potassium, Radom Urine 68 mmol/L; Urine Random Chloride 89 mmol/L; Urine Random Sodium 48 mmol/L
--- NOTE | 2020-12-31 18:43 | PC.NURSE ---
Shift Note Frequent safety and comfort rounds continue. Orders and/or nursing care completed as indicated. Patient monitored for response to intervention and treatment(s). Education provided includes[]. Patient and/or patient care representative [ResponseToTeaching]. Will continue to monitor. to ct and ct scan done very letheragic at this time but will take sips of water
--- NOTE | 2020-12-31 23:00 | PC.NURSE ---
Dialysis Catheter Went in to check on patient, upon assessment right femoral dialysis catheter noted to have moderate amount blood coming from insertion site. Redressed site and applied Surgicel.
[2021-01-01] VITALS (30 sets, daily range): BP systolic 85–193; BP diastolic 45–104; PULSE 64–86; RESP 6–17; TEMP 36.5–37.1; O2SAT 96–100; BMI 21.4
[2021-01-01] MEDS: famotidine 20 mg/2 mL INJ IVP ×3 (01:05→22:34)
[2021-01-01 01:28] LABS: Basophils % 0.5 %; Eosinophils # 0.1 10^3/uL (0.0-0.8); Eosinophils % 1.6 %; Hematocrit 23.8 % (37.0-47.0); Hemoglobin 7.8 g/dL (11.5-15.3); Lymphocytes % 11.4 %; Mean Corpuscular HGB Conc 32.8 g/dL (30.0-36.0); Mean Corpuscular Hemoglobin 31.2 pg (28.0-34.0); Mean Corpuscular Volume 95.2 fl (81-99); Mean Platelet Volume 10.4 fL (7.4-10.4); Monocytes # 0.7 10^3/uL (0.2-0.9); Monocytes % 8.4 %; Neutrophils % 77.8 %; Nucleated Red Blood Cells % 0 %; Platelet Count 365 10^3/cmm (130-400); Red Cell Distribution Width 14.6 % (12.1-15.1); White Blood Count 8.7 10^3/uL (4.0-10.0)
[2021-01-01 01:52] LABS: Alanine Aminotransferase 12 U/L (0-33); Albumin Level 3.4 g/dL (3.5-5.2); Alkaline Phosphatase 80 IU/L (35-105); Anion Gap 16.8 (5-19); Aspartate Amino Transferase 21 U/L (0-32); Blood Urea Nitrogen 33 mg/dL (8-23); Calcium 8.6 mg/dL (8.5-10.5); Carbon Dioxide 31 mmol/L (22-29); Chloride 97 mmol/L (98-107); Ferritin 115 ng/mL (15-150); Globulin 2.5 g/dL (1.3-4.6); Glucose 108 mg/dL (65-115); Iron 47 ug/dL (37-145); Osmolality Calculated 300 mOsm/kg (285-295); Percent Saturation 23.5 % (20-50); Phosphorus 3.4 mg/dL (2.5-4.5); Potassium 3.8 mmol/L (3.5-5.1); Sodium 141 mmol/L (136-145); Total Bilirubin 0.2 mg/dL (0.15-1.2); Total Iron Binding Capacity 200 mcg/dl; Total Protein 5.9 g/dL (6.6-8.7); Unsaturated Iron Binding 153 ug/dL (112-347)
[2021-01-01 05:03] LABS: Basophils % 0.5 %; Eosinophils # 0.1 10^3/uL (0.0-0.8); Eosinophils % 1.7 %; Hematocrit 23.1 % (37.0-47.0); Hemoglobin 7.5 g/dL (11.5-15.3); Lymphocytes # 0.8 10^3/uL (0.8-4.8); Lymphocytes % 11.1 %; Mean Corpuscular HGB Conc 32.5 g/dL (30.0-36.0); Mean Corpuscular Hemoglobin 31.4 pg (28.0-34.0); Mean Corpuscular Volume 96.7 fl (81-99); Mean Platelet Volume 10.6 fL (7.4-10.4); Monocytes # 0.6 10^3/uL (0.2-0.9); Monocytes % 7.6 %; Neutrophils # 5.92 10^3/uL (1.8-7.7); Neutrophils % 78.8 %; Nucleated Red Blood Cells % 0 %; Platelet Count 354 10^3/cmm (130-400); Red Blood Count 2.39 10^6/uL (4.1-5.3); Red Cell Distribution Width 14.7 % (12.1-15.1); White Blood Count 7.5 10^3/uL (4.0-10.0)
[2021-01-01] MEDS: amlodipine 5 mg Tablet PO ×2 (05:23→08:03)
--- NOTE | 2021-01-01 05:30 | PC.NURSE ---
Shift Note Frequent safety and comfort rounds continue. Orders and/or nursing care completed as indicated. Patient monitored for response to intervention and treatment(s). Education provided includes Abdoulaye. Patient needs reinforcement teaching. Left AC IV is saline locked and left forearm IV has sodium bicarb with D5 infusing at 75 mls/hr. Right femoral dialysis catheter site still has a small amount of blood leaking from insertion site. Patient has scratches noted on her arms and abdomen, no other wounds noted at this time. Patient remains confused this shift, she reports not knowing where she is, what her name is, as well as not knowing month/year. No complaints of pain all evening and patient is on room air. Armas catheter drained 350 mls of bright yellow cloudy urine all evening. Will continue to monitor.
[2021-01-01 05:32] LABS: Calcium 8.6 mg/dL (8.5-10.5)
[2021-01-01 05:35] LABS: Parathyroid Hormone 86.7 pg/mL (15-65)
--- NOTE | 2021-01-01 06:43 | PM.PN ---
Subjective Subjective: Interval history: confused, no n/v/f/c/marcial/d. has bleeding on LLE femoral dialysis catheter. is urinating Medications: Reviewed: Yes Medication Review Details: Current Medications Acetaminophen (Acetaminophen 325 Mg Tablet) 650 mg PO Q6H PRN PRN Reason: Mild/Mod Pain Or Temp >/= 101 Allopurinol (Allopurinol 100 Mg Tablet) 100 mg PO DAILY FOR[facility]LY [facility], [facility]1983 Amlodipine Besylate (Amlodipine 5 Mg Tablet) 5 mg PO DAILY [facility]1983 Last Admin: 01/01/21 05:23 Dose: 5 mg Documented by: Aspirin (Aspirin 81 Mg Ec Tablet) 81 mg PO DAILY [facility], 1928[facility]1983 Last Admin: 12/31/20 08:41 Dose: 81 mg Documented by: Famotidine (Famotidine 20 Mg/2 Ml Inj) 20 mg IVP Q12H [facility] 1928[facility]1983 Last Admin: 01/01/21 01:05 Dose: 20 mg Documented by: Heparin Sodium (Beef Lung) (Heparin 5,000 Unit/Ml Inj 1 Ml) 5,000 unit SUBCUT Q12H FOR[facility], [facility]1983 Last Admin: 12/31/20 11:25 Dose: 5,000 unit Documented by: Norepinephrine Bitartrate 4 mg (/ Dextrose) 254 mls @ 0 mls/hr IV .Q0M FOR[facility], [facility]–1983; Protocol Last Titration: 12/31/20 02:59 Dose: 0 mcg/min, 0 mls/hr Documented by: Sodium Bicarbonate 150 meq/ (Dextrose) 1,000 mls @ 75 mls/hr IV .[id number] FOR[facility], [facility]1983 Last Admin: 01/01/21 06:12 Dose: 75 mls/hr Documented by: Metoprolol Tartrate (Metoprolol Tartrate 50 Mg Tablet) 50 mg PO BID [facility] Last Admin: 12/31/20 17:31 Dose: 50 mg Documented by: Multivitamins (Q-Kjllzgh-Uhiujwx C Tablet) 1 each PO DAILY [facility] Last Admin: 12/31/20 08:41 Dose: 1 each Documented by: Ondansetron HCl (Ondansetron 2 Mg/Ml Sdv 2 Ml) 4 mg IVP Q8H PRN PRN Reason: vomiting, or N/V if npo Vitals/I&O/Wt Last Vital Signs Temp 97.7 F 01/01/21 04:00 Pulse 77 01/01/21 06:00 Resp 10 L 01/01/21 05:00 BP 182/60 01/01/21 05:00 Pulse Ox 100 01/01/21 05:00 12/31/20 12/31/20 01/01/21 14:59 22:59 06:59 Intake Total 1100 / 1100 Output Total 350 / 350 Balance 750 / 750 Weight last 48 hrs Weight 51.426 kg Weight 58.423 kg Physical Exam Narrative: EXAM NARRATIVE: in bed, NARD vs noted- BP elevated heent- nc/at, eomi, anicteric neck supple lungs clear b/l heart reg abd soft, nt, nd, +BS ext no edema left femoral dialysis catheter w/ bleeding by site neuro- responds to pain and voice- disoriented follows commands pulses + b/l Urinary Catheter Management^: Armas: Cath Placed During This Visit: yes Reason for Continuing Indwelling Catheter: Accurate Measurement of Urinary Output in Critically Ill Patients Urinary Catheter Date of Insertion: 12/30/20 Urinary Catheter Time of Insertion: 21:03 Data : 01/01/21 03:55 01/01/21 01:20 Micro: Microbiology 12/30/20 19:49 Blood Culture - Preliminary Blood NEGATIVE TO DATE 12/30/20 19:49 Blood Culture - Preliminary Blood NEGATIVE TO DATE A&P Additional A&P Information 1. Renal failure a. CKD stage 3b- baseline cr 1.8- 2.3 mg/dl - likely from hypertension and renovascular disease. -pth 86- monitor -await vit d levels b. SIMA- prerenal azotemia vs ATN in from poor p.o. intake in the setting of combination loop and thiazide diuretics, in the setting of combination NSAIDs and MERISSA inhibitor to reduce both glomerular blood flow and glomerular pressure. -note pt had a CTA on admission - renal sonogram = b/l renal atrophy, rt 7.3 cm, left kidney 8.8 cm - urinalysis- w/ 1+ ketones, 10-15 hyaline casts -ur na 40 on diuretics- difficult to interpret -monitor uop and chemistries- and monitor for further dialysis needs 2. Hyperkalemia: Secondary to renal failure, supplemental potassium, MERISSA inhibitor. -improved w/ dialysis 3. met acidosis- improved- d/c bicarb drip -monitor on po feeds 4. anemia- check iron studies -bleeding from femoral dialysis catheter site % sat 23, ferritin 115- iv iron -f continues to bleed- consider prbc tx -consider ALEN- except for vertebral artery disease 5. HTN- norvasc , metoprolol, add hydralazine -check renal art duplex for possible renal artery stenosis 6.AMS Given the correlating temporal relationship with the critical biochemical abnormalities it is almost certain that these two are related i.e. she has uremic encephalopathy and severe muscle weakness secondary to hyperkalemia. Of note CT scan of the head was unremarkable for acute changes, however CTA just demonstrates cerebrovascular disease She did not receive TPA Serial neuro checks as we correct and restore renal function and correct biochemical abnormalities. Case discussed with bedside RN Exam and interview performed with aid of bedside RN using telemedicine Time spent 30 min inc > 50% of time in face to face counseling Attestations Medical Necessity Statement*: per medicine Time Spent in Patient Care: 16 - 35 minutes Coding Level of Care Code Acute Healthcare Social Worker for Lillian Cabrera
--- NOTE | 2021-01-01 06:51 | USCV_ITS ---
Ana Butterfield Age: 75 Gender: F : 1945 Exam Date: 01/01/2021 08:59 Ordering Phys: Ramon Nugent MD Technologist: Exam Location: [facility] – [place], [place]_ Indication: REFRACTORY HTN Aortic Velocity @ SMA (cm/s) 70.6 RIGHT KIDNEY LEFT KIDNEY Velocity (cm/s) Velocity (cm/s) Sys/Hyman Sys/Hyman Resistive Index Resistive Index 57.0 / 10.0 0.83 Proximal Renal Artery 75.5 / 17.6 0.77 67.9 / 14.5 0.79 Mid Renal Artery 88.2 / 16.7 0.81 59.7 / 16.3 0.73 Distal Renal Artery 73.5 / 14.7 0.80 59.7 / 11.8 0.80 Hilar 70.6 / 9.8 0.86 27.0 / 5.7 0.79 Upper Pole 39.3 / 9.2 0.77 45.0 / 11.5 0.75 Mid Pole 47.2 / 8.8 0.81 43.0 / 7.8 0.82 Lower Pole 90.2 / 17.5 0.81 1.00 Renal Aortic Ratio 1.25 Accleration Index (cm/sec2) 1291.0 Hilar 1427.0 0 0 493.00 Upper Pole 674.00 5317.0 Mid Pole 575.00 0 622.00 Lower Pole 1387.0 0 94.8 Kidney Length (mm) 91.9 FINDINGS No evidence of abdominal aortic aneurysm. There is no evidence of hemodynamically significant right renal artery stenosis. There is no evidence of hemodynamically significant left renal artery stenosis. CONCLUSIONS No sonographic evidence of renal aortic stenosis or aneurysm. Dr. Janis Shepard DO (Electronically Signed) Final Date: 01 January 2021 09:48 S
[2021-01-01] MEDS: hyDRALAzine 25 mg Tablet PO ×3 (08:03→20:51)
[2021-01-01] MEDS: allopurinol 100 mg Tablet PO (08:03)
[2021-01-01] MEDS: b-complex-vitamin c Tablet 1 EACH PO (08:03)
[2021-01-01] MEDS: aspirin 81 mg EC Tablet PO (08:03)
[2021-01-01] MEDS: metoprolol tartrate 50 mg Tablet PO ×2 (08:03→17:18)
--- NOTE | 2021-01-01 08:46 | PC.CHAP ---
Pastoral Care Encounter/Spiritual Assessment Type of Contact [] Declined cargo service agent visit [] Patient/Family/Request visit [] Outpatient visit [] Follow-up visit [] Physician referral [] Code/Alert [x] Routine visit [] Staff referral [] Actively dying [x] Patient sleeping [] Family support [] [] Out of room [] Palliative care [] [] Receiving care in room [] Pre-surgical visit [] Trauma [] Long length of stay [x] ICU visit [] Other: Relational/Emotional Strength [] Patient feels connected with others/family/visitors/staff [] Distress [] Loneliness/isolation [] Abandonment Spirituality of Patient [] Person of Giana [] Attends Religion of their Giana [] Believes in Prayer [] Reads Bible or Latter Day materials [] There are Spiritual issues to be addressed Foil Spinner Interventions [x] Prayer [] Active listening [] Non-anxious presence [] Spiritual/emotional support [] Crisis/trauma care [] Spiritual counseling [] Bereavement support [] Provided bereavement packet [] Provided Bible/devotional materials [] Provided toy/stuffed animal, coloring book to patient or family member [] Provided Communion [] Anointing/[place] [] Salvation [x] Completed spiritual assessment [] Other: Impact on Illness or Injury [] Angry [] Fearful [] Anxious [] Often cries [] Exhaustion [] Unable to work [] Unable to attend druze [] Unable to walk/stand [] Unable to read [] Unable to drive [] Unable to eat/drink [] Unable to sleep [] Unable to be with family [] Patient intubated [] Other: Summary Time spent with patient
[2021-01-01 09:16] LABS: INR 1.06 (0.8-1.2)
[2021-01-01 09:17] LABS: Fibrinogen 360 mg/dL (174-498); Partial Thromboplastin Time 28.1 SECONDS (23.9-36.7)
[2021-01-01 09:20] LABS: D Dimer 3.13 ug/mIFEU (0-0.59)
--- NOTE | 2021-01-01 09:42 | PC.NURSE ---
0700 Report received. Pt alert and oriented to self only at this time, follows some simple commands. Coagulated blood noted to L groin dialysis catheter. No hematoma noted. Sandbag and krupa in place. Offgoing nurse reported that had been oozing all night and that surgicell was applied to area. VSS. Armas cath draining freely to BSD. MD notified via Voalte of condition of groin site. No new orders at this time. 0830 Md at bedside, wants pressure applied and dressing changed. If not able to control bleeding then dialysis catheter is to be removed per roads superintendent. 0900 Dressing removed, surgicell left in place. Large amounts of clots removed. Area cleaned and redressed. No active bleeding noted. Pt turned and all coagulated blood removed from pt and bed. Tolerated well. Will monitor site for bleeding.
[2021-01-01 15:43] LABS: Anion Gap 14.3 (5-19); Blood Urea Nitrogen 32 mg/dL (8-23); Calcium 8.5 mg/dL (8.5-10.5); Carbon Dioxide 32 mmol/L (22-29); Chloride 95 mmol/L (98-107); Glucose 109 mg/dL (65-115); Osmolality Calculated 293 mOsm/kg (285-295); Potassium 3.3 mmol/L (3.5-5.1); Sodium 138 mmol/L (136-145)
--- NOTE | 2021-01-01 16:51 | PC.NURSE ---
1628 Report given to Chana MONTELONGO. 1645 Pt transferred via bed to 260. Tolerated well. Nurse at bedside.
--- NOTE | 2021-01-01 16:59 | P.PN_ITS ---
Subjective Subjective: Interval history: Oozing of blood noticed around temporary dialysis catheter, overnight sandbag was used with pressure hemoglobin 7.5, bleeding did stop with pressure with sandbag and manual Did discuss with mechanical engineering officer, no further plan for dialysis for now in case of continuous oozing of blood around dialysis catheter it can be removed however for now bleeding has stopped, we will not remove dialysis catheter at this point, I do notice worsening of creatinine potassium is normal with improvement in bicarb noted Patient is only oriented to herself Not able to move her extremities has some activity against gravity in her legs Does not have DIC Vitals/I&O/Wt Last Vital Signs Temp 98.6 F 01/01/21 16:00 Pulse 69 01/01/21 16:00 Resp 17 01/01/21 16:00 BP 123/64 01/01/21 16:00 Pulse Ox 100 01/01/21 16:00 01/01/21 01/01/21 01/01/21 06:59 14:59 22:59 Intake Total 1100 / 1100 186.25 / 186.25 Output Total 350 / 350 Balance 750 / 750 186.25 / 186.25 Weight last 48 hrs Weight 51.426 kg Weight 58.423 kg Physical Exam Narrative: EXAM NARRATIVE: Very pleasant female Appears dehydrated Only oriented to herself Able to answer my questions to some extent however keeps repeating her answers S1, S2 no murmur appreciated Abdomen soft nontender Lower extremity no edema however multiple laceration and bruises noted of extremities She is able to lift her legs against gravity to some extent but not completely, no movement at all on the right arm, she uses shoulder girdle to move her arms no facial asymmetry Urinary Catheter Management^: Armas: Cath Placed During This Visit: yes Reason for Continuing Indwelling Catheter: Accurate Measurement of Urinary Output in Critically Ill Patients Urinary Catheter Date of Insertion: 12/30/20 Urinary Catheter Time of Insertion: 21:03 Data : 01/01/21 03:55 01/01/21 14:59 Micro: Microbiology 12/30/20 19:49 Blood Culture - Preliminary Blood NEGATIVE TO DATE 12/30/20 19:49 Blood Culture - Preliminary Blood NEGATIVE TO DATE A&P Assessment and plan (1) Altered mental status: Status: Acute Qualifiers: Altered mental status type: stupor Qualified Code(s): R40.1 - Stupor (2) Acute hyperkalemia: Status: Acute (3) Acute renal failure: Status: Acute Qualifiers: Acute renal failure type: unspecified Qualified Code(s): N17.9 - Acute kidney failure, unspecified (4) Elevated troponin I level: Status: Acute (5) Hyperkalemic periodic paralysis: Status: Acute (6) CVA (cerebral vascular accident): Status: Acute Additional A&P Information Altered mental status, patient is oriented to herself No signs of meningitis She does have strokelike features not able to move her arms bilaterally, weakness is profound on the right side as compared to left, no facial asymmetry NIH on presentation was greater than 20 she was not given TPA CTA head and neck shows multiple level atherosclerotic lesions in major vessels Not an ideal candidate for antiplatelet or anticoagulation due to anemia Oozing of blood noticed around dialysis catheter, I highly doubt she will cooperate for MRI brain Hyperkalemia acute: Improved after dialysis Acute on chronic kidney disease Baseline creatinine seems to be around 1.8-1.9, Nephro recommendations appreciated Acidosis improved High BUN, anemia slightly worsened, atrophic kidneys on renal ultrasound, abdo men pelvis CT scan unremarkable PT OT and speech evaluation Metabolic acidosis improved currently showing alkalo Acute normocytic anemia Oozing of blood noted from dialysis catheter watch out for any signs of worsening of bleeding or hematoma development Bleeding stopped around the dialysis catheter which I would not remove at this point Transferred out of ICU today Mechanical soft renal dialysis diet Full code DVT prophylaxis currently on hold due to oozing of blood, in case of further not ice active bleeding around the catheter okay to remove as per nephro Attestations Medical Necessity Statement*: Transfer out of ICU Time Spent in Patient Care: 16 - 35 minutes Coding Level of Care Code Acute Organizational Psychologist for g Fwd Diagnoses Altered mental status R40.1 Altered mental status type: stupor Acute hyperkalemia E87.5 Acute renal failure N17.9 Acute renal failure type: unspecified Elevated troponin I level R77.8 Hyperkalemic periodic paralysis G72.3 CVA (cerebral vascular accident) I63.9
[2021-01-01] MEDS: atorvastatin 40 mg Tablet PO (20:51)
[2021-01-02] VITALS (11 sets, daily range): BP systolic 94–154; BP diastolic 52–80; PULSE 67–80; RESP 16–19; TEMP 36.7–37.7; O2SAT 98–100
[2021-01-02 06:41] LABS: Basophils % 0.2 %; Eosinophils # 0.1 10^3/uL (0.0-0.8); Eosinophils % 1.2 %; Hematocrit 20.9 % (37.0-47.0); Hemoglobin 6.7 g/dL (11.5-15.3); Lymphocytes # 0.5 10^3/uL (0.8-4.8); Lymphocytes % 5.2 %; Mean Corpuscular HGB Conc 32.1 g/dL (30.0-36.0); Mean Corpuscular Hemoglobin 31.3 pg (28.0-34.0); Mean Corpuscular Volume 97.7 fl (81-99); Mean Platelet Volume 10.6 fL (7.4-10.4); Monocytes # 0.5 10^3/uL (0.2-0.9); Monocytes % 5.1 %; Neutrophils # 8.06 10^3/uL (1.8-7.7); Nucleated Red Blood Cells % 0 %; Platelet Count 282 10^3/cmm (130-400); Red Blood Count 2.14 10^6/uL (4.1-5.3); Red Cell Distribution Width 14.4 % (12.1-15.1); White Blood Count 9.2 10^3/uL (4.0-10.0)
[2021-01-02 07:02] LABS: Alanine Aminotransferase 10 U/L (0-33); Albumin Level 3.1 g/dL (3.5-5.2); Alkaline Phosphatase 82 IU/L (35-105); Anion Gap 16.1 (5-19); Aspartate Amino Transferase 20 U/L (0-32); Blood Urea Nitrogen 32 mg/dL (8-23); Calcium 8.8 mg/dL (8.5-10.5); Carbon Dioxide 31 mmol/L (22-29); Chloride 94 mmol/L (98-107); Globulin 2.2 g/dL (1.3-4.6); Glucose 88 mg/dL (65-115); Magnesium 1.8 mg/dL (1.7-2.3); Osmolality Calculated 292 mOsm/kg (285-295); Phosphorus 3.7 mg/dL (2.5-4.5); Potassium 3.1 mmol/L (3.5-5.1); Sodium 138 mmol/L (136-145); Total Bilirubin 0.2 mg/dL (0.15-1.2); Total Protein 5.3 g/dL (6.6-8.7)
--- NOTE | 2021-01-02 07:36 | P.PN_ITS ---
Subjective Subjective: Interval history: confused, can not get a ROS Medications: Reviewed: Yes Medication Review Details: Current Medications Acetaminophen (Acetaminophen 325 Mg Tablet) 650 mg PO Q6H PRN PRN Reason: Mild/Mod Pain Or Temp >/= 101 Allopurinol (Allopurinol 100 Mg Tablet) 100 mg PO DAILY [facility] Last Admin: 01/01/21 08:03 Dose: 100 mg Documented by: Amlodipine Besylate (Amlodipine 5 Mg Tablet) 5 mg PO DAILY [facility] Last Admin: 01/01/21 08:03 Dose: 5 mg Documented by: Aspirin (Aspirin 81 Mg Ec Tablet) 81 mg PO DAILY [facility] Last Admin: 01/01/21 08:03 Dose: 81 mg Documented by: Atorvastatin Calcium (Atorvastatin 40 Mg Tablet) 40 mg PO BEDTIME [facility] Last Admin: 01/01/21 20:51 Dose: 40 mg Documented by: Famotidine (Famotidine 20 Mg/2 Ml Inj) 20 mg IVP Q12H [facility] Last Admin: 01/01/21 22:34 Dose: 20 mg Documented by: Heparin Sodium (Beef Lung) (Heparin 5,000 Unit/Ml Inj 1 Ml) 5,000 unit SUBCUT Q12H [facility] Last Admin: 12/31/20 11:25 Dose: 5,000 unit Documented by: Hydralazine HCl (Hydralazine 25 Mg Tablet) 25 mg PO TID [facility] Last Admin: 01/01/21 20:51 Dose: 25 mg Documented by: Metoprolol Tartrate (Metoprolol Tartrate 50 Mg Tablet) 50 mg PO BID [facility] Last Admin: 01/01/21 17:18 Dose: 50 mg Documented by: Multivitamins (J-Drhhupu-Zobretc C Tablet) 1 each PO DAILY [facility] Last Admin: 01/01/21 08:03 Dose: 1 each Documented by: Ondansetron HCl (Ondansetron 2 Mg/Ml Sdv 2 Ml) 4 mg IVP Q8H PRN PRN Reason: vomiting, or N/V if npo Vitals/I&O/Wt Last Vital Signs Temp 98.7 F 01/02/21 04:00 Pulse 79 01/02/21 05:46 Resp 16 01/02/21 04:00 BP 94/52 01/02/21 04:00 Pulse Ox 98 01/02/21 04:00 01/01/21 01/02/21 01/02/21 22:59 06:59 14:59 Intake Total 360 / 546.25 100 / 646.25 Output Total 400 / 400 Balance 360 / 546.25 -300 / 246.25 Weight last 48 hrs Weight 50.405 kg Weight 51.426 kg Physical Exam Narrative: EXAM NARRATIVE: in bed, NARD vs noted- BP now low heent- nc/at, eomi, anicteric neck supple lungs clear b/l heart reg abd soft, nt, nd, +BS ext no edema left femoral dialysis catheter - no active bleeding neuro- responds to pain and voice- disoriented follows simple commands pulses + b/l Urinary Catheter Management^: Armas: Cath Placed During This Visit: yes Reason for Continuing Indwelling Catheter: Accurate Measurement of Urinary Output in Critically Ill Patients Urinary Catheter Date of Insertion: 12/30/20 Urinary Catheter Time of Insertion: 21:03 Data : 01/02/21 06:14 01/02/21 06:14 A&P Additional A&P Information 1. Renal failure a. CKD stage 3b- baseline cr 1.8- 2.3 mg/dl - likely from hypertension and renovascular disease. -pth 86- monitor -await vit d levels b. SIMA- prerenal azotemia vs ATN in from poor p.o. intake in the setting of combination loop and thiazide diuretics, in the setting of combination NSAIDs and MERISSA inhibitor to reduce both glomerular blood flow and glomerular pressure. -note pt had a CTA on admission - renal sonogram = b/l renal atrophy, rt 7.3 cm, left kidney 8.8 cm - urinalysis- w/ 1+ ketones, 10-15 hyaline casts -ur na 40 on diuretics- difficult to interpret -monitor uop and chemistries -cr back to baseline- no need for further HD 2. Hypokalemia: replete and monitor 3. met acidosis- improved- now w/ met alkalosis 4. anemia- check iron studies -bleeding from femoral dialysis catheter site % sat 23, ferritin 115- iv iron -hgb 6.7- consider prbc tx -consider ALEN- except for vertebral artery disease 5. HTN- norvasc , metoprolol, add hydralazine -check renal art duplex for possible renal artery stenosis 6.AMS Given the correlating temporal relationship with the critical biochemical abnormalities it is almost certain that these two are related i.e. she has uremic encephalopathy and severe muscle weakness secondary to hyperkalemia. Of note CT scan of the head was unremarkable for acute changes, however CTA just demonstrates cerebrovascular disease She did not receive TPA Serial neuro checks as we correct and restore renal function and correct biochemical abnormalities. Case discussed with bedside RN Exam and interview performed with aid of bedside RN using telemedicine Time spent 30 min inc > 50% of time in face to face counseling Attestations Medical Necessity Statement*: anemia, per medicine Time Spent in Patient Care: 16 - 35 minutes Coding Level of Care Code Acute Body Straightener for Lillian Cabrera
[2021-01-02] MEDS: potassium chloride ER 20 mEq Tablet 40 MEQ PO (09:33)
[2021-01-02] MEDS: b-complex-vitamin c Tablet 1 EACH PO (09:35)
[2021-01-02] MEDS: metoprolol tartrate 25 mg Tablet PO ×2 (09:36→20:23)
[2021-01-02] MEDS: allopurinol 100 mg Tablet PO (09:36)
[2021-01-02] MEDS: amlodipine 5 mg Tablet PO (09:36)
--- NOTE | 2021-01-02 11:22 | PC.CHAP ---
Pastoral Care Encounter/Spiritual Assessment Type of Contact [] Declined photocopy operator visit [] Patient/Family/Request visit [] Outpatient visit [] Follow-up visit [] Physician referral [] Code/Alert [x] Routine visit [] Staff referral [] Actively dying [x] Patient sleeping [] Family support [] [] Out of room [] Palliative care [] [] Receiving care in room [] Pre-surgical visit [] Trauma [] Long length of stay [] ICU visit [] Other: Relational/Emotional Strength [] Patient feels connected with others/family/visitors/staff [] Distress [] Loneliness/isolation [] Abandonment Spirituality of Patient [] Person of Giana [] Attends Sikh of their Giana [] Believes in Prayer [] Reads Bible or Catholic materials [] There are Spiritual issues to be addressed Tractor Trailer Truck Driver Interventions [] Prayer [] Active listening [] Non-anxious presence [] Spiritual/emotional support [] Crisis/trauma care [] Spiritual counseling [] Bereavement support [] Provided bereavement packet [] Provided Bible/devotional materials [] Provided toy/stuffed animal, coloring book to patient or family member [] Provided Communion [] Anointing/[place] [] Salvation [] Completed spiritual assessment [] Other: Impact on Illness or Injury [] Angry [] Fearful [] Anxious [] Often cries [] Exhaustion [] Unable to work [] Unable to attend episcopal [] Unable to walk/stand [] Unable to read [] Unable to drive [] Unable to eat/drink [] Unable to sleep [] Unable to be with family [] Patient intubated [] Other: Summary Time spent with patient
--- NOTE | 2021-01-02 11:57 | PM.PN ---
Subjective Subjective: Interval history: Patient will get 1 unit of PRBC Temporary dialysis catheter to be removed no more need of dialysis, creatinine back to baseline Patient is oriented to herself She did eat scrambled egg and drank orange juice with assistance, she is not able to use her upper extremities because of fracture and new stroke Dr. Mckinney did call me as well She does have baseline dementia and as per the she has not been able to do much at home, her functional status has been declining she has not been able to use her upper extremities since her last fracture Vitals/I&O/Wt Last Vital Signs Temp 98.5 F 01/02/21 11:28 Pulse 67 01/02/21 11:28 Resp 16 01/02/21 11:28 BP 132/73 01/02/21 11:28 Pulse Ox 98 01/02/21 11:28 01/01/21 01/02/21 01/02/21 22:59 06:59 14:59 Intake Total 360 / 546.25 100 / 646.25 60 / 60 Output Total 400 / 400 Balance 360 / 546.25 -300 / 246.25 60 / 60 Weight last 48 hrs Weight 50.405 kg Weight 51.426 kg Physical Exam Narrative: EXAM NARRATIVE: She is ablePatient lying comfortably in her bed Not able to move her upper extremities, to lift her legs bilaterally against gravity Oriented to herself No facial asymmetry Bilateral diminished breath sounds No audible stridor or wheezing Abdomen soft Right groin temporary dialysis catheter no active oozing of blood Multiple laceration noticed around extremities Excoriation pena on abdominal wall EOMI, PERRLA Urinary Catheter Management^: Armas: Cath Placed During This Visit: yes Reason for Continuing Indwelling Catheter: Accurate Measurement of Urinary Output in Critically Ill Patients Urinary Catheter Date of Insertion: 12/30/20 Urinary Catheter Time of Insertion: 21:03 Data : 01/02/21 06:14 01/02/21 06:14 A&P Assessment and plan (1) Hyperkalemic periodic paralysis: Status: Acute (2) Elevated BUN: Status: Acute (3) Elevated troponin I level: Status: Acute (4) Acute renal failure: Status: Acute Qualifiers: Acute renal failure type: unspecified Qualified Code(s): N17.9 - Acute kidney failure, unspecified (5) Acute hyperkalemia: Status: Acute (6) Altered mental status: Status: Acute Qualifiers: Altered mental status type: stupor Qualified Code(s): R40.1 - Stupor (7) CVA (cerebral vascular accident): Status: Acute (8) Dementia: Status: Acute (9) Declining functional status: Status: Acute Additional A&P Information Hypoactive delirium with underlying dementia As per the family patient is back to her baseline She has not been able to walk or eat much at home does not use her upper extremities since her previous fracture She does have new onset right-sided worsening of weakness consistent with her abnormal CTA head and neck Unfortunately not a candidate of dual antiplatelet therapy because of current anemia Hyperkalemia: Improved Acute on chronic kidney disease Creatinine seems around baseline no plan of dialysis temporary dialysis catheter to be removed on 01/02 Metabolic acidosis: Improving Acute blood loss normocytic anemia We will transfuse 1 unit PRBC This is secondary to oozing of blood around catheter site DIC ruled out Plan to send her to a residential, patient has poor functional status As per the family she has been getting worse gradually DNR/DNI DVT prophylaxis contraindicated due to anemia Mechanical soft diet PT speech evaluation pending Attestations Medical Necessity Statement*: Awaiting residential placement Time Spent in Patient Care: 16 - 35 minutes Coding Level of Care Code Acute Powder And Primer Canning Leader for g Fwd Diagnoses Hyperkalemic periodic paralysis G72.3 Elevated BUN R79.9 Elevated troponin I level R77.8 Acute renal failure N17.9 Acute renal failure type: unspecified Acute hyperkalemia E87.5 Altered mental status R40.1 Altered mental status type: stupor CVA (cerebral vascular accident) I63.9 Dementia F03.90 Declining functional status R53.81
--- NOTE | 2021-01-02 13:49 | PC.SOCIAL ---
Pg 2 IMM Explained to pt Pg 2 IMM. No questions voiced. Provided pt a copy. Initialed, dated, & timed a copy & placed in chart.
[2021-01-02] MEDS: sodium chloride 0.9% (100 ml) 100 ML 125 ML (14:13)
[2021-01-02 16:11] LABS: Anti-Double Strand DNA AB 1 IU/mL
--- NOTE | 2021-01-02 19:14 | PC.NURSE ---
Shift Note Frequent safety and comfort rounds continue. Orders and/or nursing care completed as indicated. Patient monitored for response to intervention and treatment(s). Patient received 1 unit of red blood cells this shift. Patient rested comfortably during this shift with her at bedside for most of the visiting hours. Patient is currently resting comfortably in bed. Will continue to monitor.
[2021-01-02] MEDS: atorvastatin 40 mg Tablet PO (20:23)
[2021-01-03] VITALS (8 sets, daily range): BP systolic 105–173; BP diastolic 70–83; PULSE 61–102; RESP 16–18; TEMP 36.4–36.9; O2SAT 95–99
[2021-01-03 02:26] LABS: Basophils % 0.3 %; Eosinophils # 0.1 10^3/uL (0.0-0.8); Eosinophils % 0.7 %; Hematocrit 27.7 % (37.0-47.0); Lymphocytes # 0.4 10^3/uL (0.8-4.8); Lymphocytes % 3.5 %; Mean Corpuscular HGB Conc 32.5 g/dL (30.0-36.0); Mean Corpuscular Hemoglobin 30.1 pg (28.0-34.0); Mean Corpuscular Volume 92.6 fl (81-99); Mean Platelet Volume 9.8 fL (7.4-10.4); Monocytes # 0.5 10^3/uL (0.2-0.9); Monocytes % 4.7 %; Neutrophils # 8.92 10^3/uL (1.8-7.7); Nucleated Red Blood Cells % 0 %; Platelet Count 224 10^3/cmm (130-400); Red Blood Count 2.99 10^6/uL (4.1-5.3); Red Cell Distribution Width 16.7 % (12.1-15.1); White Blood Count 9.9 10^3/uL (4.0-10.0)
[2021-01-03 02:48] LABS: Alanine Aminotransferase 10 U/L (0-33); Albumin Level 3.1 g/dL (3.5-5.2); Alkaline Phosphatase 95 IU/L (35-105); Anion Gap 15.5 (5-19); Aspartate Amino Transferase 22 U/L (0-32); Blood Urea Nitrogen 30 mg/dL (8-23); Calcium 8.8 mg/dL (8.5-10.5); Carbon Dioxide 29 mmol/L (22-29); Chloride 95 mmol/L (98-107); Globulin 2.6 g/dL (1.3-4.6); Glucose 93 mg/dL (65-115); Magnesium 1.7 mg/dL (1.7-2.3); Osmolality Calculated 288 mOsm/kg (285-295); Phosphorus 2.6 mg/dL (2.5-4.5); Potassium 3.5 mmol/L (3.5-5.1); Sodium 136 mmol/L (136-145); Total Bilirubin 0.4 mg/dL (0.15-1.2); Total Protein 5.7 g/dL (6.6-8.7)
[2021-01-03] MEDS: metoprolol tartrate 25 mg Tablet PO ×2 (08:47→20:23)
[2021-01-03] MEDS: amlodipine 5 mg Tablet PO (08:48)
[2021-01-03] MEDS: allopurinol 100 mg Tablet PO (08:48)
[2021-01-03] MEDS: b-complex-vitamin c Tablet 1 EACH PO (08:48)
[2021-01-03 10:47] LABS: ANCA Interp Negative (Negative)
--- NOTE | 2021-01-03 12:51 | PC.NURSE ---
documented on wrong pt.
--- NOTE | 2021-01-03 13:50 | P.PN_ITS ---
Subjective Subjective: Interval history: Patient is back to her baseline creatinine has improved to 1.8 No overnight events Temporary catheter has been removed status post 1 unit PRBC hemoglobin 9.0 Vitals/I&O/Wt Last Vital Signs Temp 97.5 F L 01/03/21 12:00 Pulse 79 01/03/21 12:00 Resp 18 01/03/21 12:00 BP 160/70 01/03/21 12:00 Pulse Ox 98 01/03/21 12:00 01/02/21 01/03/21 01/03/21 22:59 06:59 14:59 Intake Total 340 / 750 1210 / 1210 Output Total 550 / 550 300 / 850 Balance -210 / 200 -300 / -100 1210 / 1210 Weight last 48 hrs Weight 50.405 kg Physical Exam Narrative: EXAM NARRATIVE: Patient was laying comfortably in her bed she is back to her baseline oriented to herself S1, S2 Clinically euvolemic Abdomen soft Left groin catheter area without any bleeding legs no edema Not able to use upper extremities Low symmetry she is able to lift legs against gravity Urinary Catheter Management^: Armas: Cath Placed During This Visit: yes Reason for Continuing Indwelling Catheter: Other Urinary Catheter Date of Insertion: 12/30/20 Urinary Catheter Time of Insertion: 21:03 Data : 01/03/21 02:19 01/03/21 02:19 A&P Assessment and plan (1) Declining functional status: Status: Acute (2) Dementia: Status: Acute (3) CVA (cerebral vascular accident): Status: Acute (4) Altered mental status: Status: Acute Qualifiers: Altered mental status type: stupor Qualified Code(s): R40.1 - Stupor (5) Acute hyperkalemia: Status: Acute (6) Acute renal failure: Status: Acute Qualifiers: Acute renal failure type: unspecified Qualified Code(s): N17.9 - Acute kidney failure, unspecified Additional A&P Information Patient is awaiting intermediate placement SIMA hyperkalemia improved Upper extremity weakness secondary to stroke and fracture Hypoactive delirium with underlying dementia patient seems to be her baseline Acute blood loss anemia secondary to oozing of blood around catheter site status post 1 unit PRBC hemoglobin stable DNR/DNI Mechanical soft diet Attestations Medical Necessity Statement*: Awaiting intermediate placement Time Spent in Patient Care: less than 15 minutes Coding Level of Care Code Acute Fermenting Cellars Receiver for Chg Fwd Diagnoses Declining functional status R53.81 Dementia F03.90 CVA (cerebral vascular accident) I63.9 Altered mental status R40.1 Altered mental status type: stupor Acute hyperkalemia E87.5 Acute renal failure N17.9 Acute renal failure type: unspecified
--- NOTE | 2021-01-03 15:33 | P.PN_ITS ---
Subjective Subjective: Interval history: Ms. Butterfield is comfortable today with no acute issues. She remains a little confused, little sleepy but overall remains quite comfortable. No overt uremic symptoms. No fluid overload. Vitals/I&O/Wt Last Vital Signs Temp 97.5 F L 01/03/21 12:00 Pulse 79 01/03/21 12:00 Resp 18 01/03/21 12:00 BP 160/70 01/03/21 12:00 Pulse Ox 98 01/03/21 12:00 01/03/21 01/03/21 01/03/21 06:59 14:59 22:59 Intake Total 1210 / 1210 Output Total 300 / 850 Balance -300 / -100 1210 / 1210 Weight last 48 hrs Weight 50.405 kg Physical Exam Narrative: EXAM NARRATIVE: Constitutional: Awake, comfortable HEENT: Wet mucosa, no jvp, non icteric Lungs: Bilaterally clear without discernible wheeze, rales in all lung zones CVS: S1 S2, no murmurs Abdo: Soft, BS ok Ext 4: Minimal edema, peripheral perfusion with no cyanosis Neurological: Grossly non-focal Urinary Catheter Management^: Armas: Cath Placed During This Visit: yes Reason for Continuing Indwelling Catheter: Other Urinary Catheter Date of Insertion: 12/30/20 Urinary Catheter Time of Insertion: 21:03 Data : 01/03/21 02:19 01/03/21 02:19 A&P Additional A&P Information 1. Acute renal failure Secondary to combination medication including loop and thiazide diuretics, NSAIDs and MERISSA inhibitors all working together in a perfect storm. Renal functions recovered, back to baseline Avoid usual nephrotoxic agents A.m. labs 2. Disposition Pending alf placement Acute renal issues have now resolved, I will sign off her case at this time. Please not hesitate to contact us should we be of more assistance in her care. As always we appreciate our involvement in her care. Wade Oliver MD Nephrology [phone] Patient seen and examined via telemedicine, with the assistance of the bedside RN > 25 min spent in evaluation and mgmt of patient Attestations Medical Necessity Statement*: SIMA Coding Level of Care Code Acute Sealing And Canceling Machine Operator for Lillian Cabrera
[2021-01-03] MEDS: atorvastatin 40 mg Tablet PO (20:23)
[2021-01-04 03:30] VITALS: BP 123/74; PULSE 89; RESP 14; TEMP 36.9; O2SAT 99
[2021-01-04 05:47] LABS: Hemoglobin 8.7 g/dL (11.5-15.3)
[2021-01-04 06:00] VITALS: PULSE 85
[2021-01-04 06:06] LABS: Anion Gap 14.2 (5-19); Blood Urea Nitrogen 26 mg/dL (8-23); Calcium 8.7 mg/dL (8.5-10.5); Carbon Dioxide 29 mmol/L (22-29); Chloride 95 mmol/L (98-107); Glucose 94 mg/dL (65-115); Osmolality Calculated 285 mOsm/kg (285-295); Potassium 3.2 mmol/L (3.5-5.1); Sodium 135 mmol/L (136-145)
[2021-01-04 08:00] VITALS: BP 150/70; PULSE 102; RESP 16; TEMP 36.9; O2SAT 98
[2021-01-04] MEDS: metoprolol tartrate 25 mg Tablet PO (09:32)
[2021-01-04] MEDS: allopurinol 100 mg Tablet PO (09:32)
[2021-01-04] MEDS: amlodipine 5 mg Tablet PO (09:32)
[2021-01-04] MEDS: b-complex-vitamin c Tablet 1 EACH PO (09:32)
[2021-01-04 11:22] VITALS: BP 133/79; PULSE 98; RESP 17; TEMP 36.6; O2SAT 99
--- NOTE | 2021-01-04 11:26 | PC.SOCIAL ---
IMM update IMM updated with patient. Copy Pg 2 provided. Initialed, dated, timed and placed in chart.
--- NOTE | 2021-01-04 11:50 | PM.DCS ---
Discharge Providers Date of Admission: 12/30/20 21:32 Date of Discharge: January 04, 2021 Attending Provider at Admission: Shelia Beckwith MD Attending Provider at Discharge: Nuno Roper MD Primary Care Provider: Víctor Morris MD Diagnoses at Discharge Discharge Diagnosis (1) Declining functional status: Status: Acute (2) Dementia: Status: Acute (3) CVA (cerebral vascular accident): Status: Acute (4) Altered mental status: Status: Acute Qualifiers: Altered mental status type: stupor Qualified Code(s): R40.1 - Stupor (5) Acute hyperkalemia: Status: Acute (6) Acute renal failure: Status: Acute Qualifiers: Acute renal failure type: unspecified Qualified Code(s): N17.9 - Acute kidney failure, unspecified Reason for Visit Reason for Visit: AMS/ INCREASED WEAKNESS/ STROKE LIKE SX Hospital Course Hospital Course History of Present Illness Ana Butterfield is a 75 year old female with a past medical history of hypertension, CKD, brought to the hospital today as she was reportedly unresponsive since 5. At home. Per patient's who is at the bedside, patient has been experiencing increased somnolence, lethargy, poor p.o. intake, excessive itching over the past 4 to 5 days. She has been sleeping up to 10 to 12 hours a day which is unusual for her. This afternoon she went to nap around 3 PM, and on trying to wake her at 5 PM, the did not have any significant response. She was only able to open eyes but not have any other conversation. She was therefore brought into the ER. Initial concern was that for stroke. NIH stroke scale greater than 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 Above findings were discussed with [facility] neurology by Dr. Sosa from ER, no TPA or thrombolysis was recommended at this time. In the interim, her labs resulted with multiple abnormalities including a creatinine of 4.3, potassium of 7.9. No history of UTIs or nephrolithiasis in the past. Per she has not been diagnosed with any kidney issues in the past, however then also states that her primary care physician Dr. Morris had referred her to see a local structural analysis engineer, she has an appointment in February. She has not been recommended dialysis at any point in the past. At this time patient's mental status is that she opens her eyes to calling name and tapping, however is otherwise unable to form any words or sentences. He is planned to start urgent dialysis soon. Hospital course Patient underwent urgent dialysis after placement of left groin temporary dialysis catheter, her potassium and BUN improved, next day when I saw her patient was only oriented to herself, I did talk with her who told me that at baseline she has not been very conversive, and she has not been able to use her upper extremities since her previous fracture and with this current stroke she cannot use her arms even for feeding. She has been requiring assisted spoon feeding throughout hospitalization. In her lower extremities she has some strength and has been able to get out of bed to chair. She would make her needs known and answers questions appropriately. She did receive 1 unit PRBC. She started oozing blood around her temporary dialysis catheter which was removed. Hemoglobin at the time of discharge 8.7. Potassium 3.2 creatinine 1.4 which seems to be around her baseline. I did discuss goals of care with her she is DNR/DNI in case of further decline in her functional status comfort measures might be pursued. At the time of discharge I have reduced her Lasix dose. Added aspirin and atorvastatin for her CVA. During this hospitalization abdominal pelvis CT scan unremarkable, renal ultrasound consistent with renal atrophy, cultures negative. Echo showed grade 1 diastolic dysfunction EF 65% with aortic valve regurgitation. Armas catheter removed, patient is able to void urine. She will be discharged to [facility] jail. Physical Exam Narrative: EXAM NARRATIVE: Patient was sitting comfortably in her chair she is back to her baseline oriented to herself S1, S2 Clinically euvolemic Abdomen soft Left groin catheter area without any bleeding legs no edema Not able to use upper extremities she is able to slightly lift legs against gravity Urinary Catheter Management^: Armas: Cath Placed During This Visit: yes Reason for Continuing Indwelling Catheter: Other Urinary Catheter Date of Insertion: 12/30/20 Urinary Catheter Time of Insertion: 21:03 Discharge Data Data Completed and Pending: Completed Studies During Hospitalization Category Date Time Status CT abdomen pelvis wo con [id number] Rout ine Cat Scan 12/31/20 12:[address] head wo con* [id number] Urgent Cat Scan 12/30/20 18:54 Completed CTA head neck [CT angio headneck* [id number]] Urgent Cat Scan 12/30/20 19:05 Completed XR chest 1V john ble [id number] Stat Exams 12/30/20 19:06 Completed CV renal doppler [id number] Routine Ultrasound 01/01/21 06:51 Completed CV. echo complete * [id number] Routine Ultrasound 12/31/20 01:02 Completed US renal BI* [id number] Routine Ultrasound 12/31/20 06:48 Completed Pending at discharge Category Date Time Status Blood Culture Sta t Lab 12/30/20 19:49 Results Immunochemical Fe tamika OCB Routine Lab 12/31/20 12:56 Uncollected SARS Covid-2 Anti gen Routine Lab 01/04/21 08:15 Uncollected Vitamin D 1,25 Di hydroxy Routine Lab 12/31/20 11:14 Received Labs from last 24 hours 01/04/21 01/04/21 04:48 04:48 Hgb 8.7 L Hct 27.0 L Sodium 135 L Potassium 3.2 L Chloride 95 L Carbon Dioxide 29 Anion Gap 14.2 BUN 26 H Creatinine 1.4 H GFR Calculation Not Reportable Glucose 94 Calculated Osmolal ity 285 Calcium 8.7 Vitals: Last Vital Signs Temp 97.8 F 01/04/21 11:22 Pulse 98 01/04/21 11:22 Resp 17 01/04/21 11:22 BP 133/79 01/04/21 11:22 Pulse Ox 99 01/04/21 11:22 Discharge Plan Discharge Patient Disposition: Xfer SNF Condition: Stable Prescriptions: New aspirin 81 mg Tablet,Delayed Release (Dr/Ec) 81 mg PO DAILY 30 Days Qty: 30 RF: 0 atorvastatin 40 mg Tablet 40 mg PO BEDTIME 30 Days Qty: 30 RF: 0 Continued (DME) 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 See Rx Instructions .Route .MEDSUPPLY Qty: 1 RF: 0 metoprolol tartrate 50 mg tablet 50 mg PO BID Qty: 30 RF: 0 naproxen 375 mg tablet 375 mg PO TID PRN (Reason: Pain) RF: 0 triamcinolone acetonide 0.1 % cream See Rx Instructions .ROUTE .COMPLEX RF: 0 potassium chloride 20 mEq tablet,ER particles/crystals 20 meq PO BID@1000,1700 RF: 0 pantoprazole 40 mg tablet,delayed release (DR/EC) 40 mg PO DAILY@1000 RF: 0 betamethasone dipropionate 0.05 % Cream See Rx Instructions .ROUTE .COMPLEX RF: 0 bupropion HCl 150 mg tablet extended release 24 hr 150 mg PO DAILY@1000 RF: 0 Prevagan 1 tab PO DAILY RF: 0 allopurinol 100 mg Tablet 100 mg PO DAILY RF: 0 Changed furosemide 40 mg tablet 20 mg PO Q48H Qty: 0 RF: 0 amlodipine 2.5 mg Tablet 10 mg PO DAILY 30 Days Qty: 0 RF: 0 Discontinued lisinopril-hydrochlorothiazide 20-25 mg tablet 1 tab PO DAILY@1000 RF: 0 gabapentin 800 mg Tablet 800 mg PO QID RF: 0 Discharge Orders: Discharge Order (Routine); Ordered 01/04/21 Ordered By: Nuno Roper Referrals: Víctor Morris MD [Primary Care Provider] - Discharge Diet: GI Soft Discharge Activity: Wheelchair as instructed Patient Instructions: Opioid Safety Discharge Attestations Time Spent in Discharge Care*: less than 30 min Quality Metrics Clinical Quality Measures During this hospital stay, did patient experience: None Coding Level of Care Code Acute g FW DC note Diagnoses Declining functional status R53.81 Dementia F03.90 CVA (cerebral vascular accident) I63.9 Altered mental status R40.1 Altered mental status type: stupor Acute hyperkalemia E87.5 Acute renal failure N17.9 Acute renal failure type: unspecified
[2021-01-04 12:23] LABS: SARS Covid-2 Antigen Negative (Negative)
--- NOTE | 2021-01-04 14:48 | PC.NURSE ---
PT HAS DONE WELL FOR ME TODAY. PT DOES NOT HAVE ANY COMPLAINTS OF PAIN. PT HAS BEEN UP TO THE CHAIR A COUPLE OF TIMES TODAY. PT REQUIRES A MINIMUM OF 2 ASSIST. PT IS WEAK BUT GETTING STRONGER. PT HAS BEEN WORKING WITH PHYSICAL THERAPY WELL NURSING STAFF. PT WILL BE GOING TO [facility] TODAY. PT IS AWARE OF THIS AND READY TO GO. REPORT HAS BEEN CALLED ON PT AND WAS GIVEN TO ANDRADE MONTELONGO. ALL QUESTIONS WERE ANSWERED. IV HAS BEEN REMOVED. CATHETER TIP INTACT. PT TOLERATED WELL. PT IS READY TO GO JUST PENDING RIDE AT 1530.
--- NOTE | 2021-01-04 15:33 | PC.NURSE ---
PT SAFELY DISCHARGED WITH TRANSPORTATION .
--- NOTE | 2021-01-05 12:46 | PC.SOCIAL ---
discharge follow up call made. spoke with patients nurse at [facility]. patient is doing good. all medications were available. denies any questions or concerns.
[2021-01-05 14:55] LABS: Vit D 1,25 (Oh)2, Total 20 pg/mL (18-72); Vit D2 1,25 (Oh)2 <8 pg/mL; Vit D3 1,25 (Oh)2 20 pg/mL
== END 2021-01-04 15:35 | disposition skilled nursing facility (03) | DRG 64 ==
LOC: ER 21:47 → ER IP 12-31 00:19 → ICU 12-31 07:11 → MEDSURG 01-01 16:38
PROVIDERS: Internal Medicine Nephrology; Admitting Provider Student in an Organized Health Care Education/Training Program; Emergency Provider Emergency Medicine; PCP Family Medicine; Visit Provider Internal Medicine
DX: I63.212 Cerebral infarction due to unspecified occlusion or stenosis of left vertebral artery (principal); G93.41 Metabolic encephalopathy; G81.90 Hemiplegia, unspecified affecting unspecified side; N17.9 Acute kidney failure, unspecified; D62 Acute posthemorrhagic anemia; F05 Delirium due to known physiological condition; R29.810 Facial weakness; H53.8 Other visual disturbances; R29.731 NIHSS score 31; E11.22 Type 2 diabetes mellitus with diabetic chronic kidney disease; I12.9 Hypertensive chronic kidney disease with stage 1 through stage 4 chronic kidney disease, or unspecified chronic kidney disease; N18.32 Chronic kidney disease, stage 3b; Z85.038 Personal history of other malignant neoplasm of large intestine; Z87.891 Personal history of nicotine dependence; H70.90 Unspecified mastoiditis, unspecified ear; G72.3 Periodic paralysis; Z66 Do not resuscitate; F03.90 Unspecified dementia, unspecified severity, without behavioral disturbance, psychotic disturbance, mood disturbance, and anxiety
CPT/HCPCS: 36415; 36416; 36430; 36600; 51702; 70450; 70496; 70498; 71045; 74176; 76770; 80048; 80051; 80053; 80074; 81001; 82140; 82310; 82330; 82436; 82550; 82575; 82652; 82728; 82805; 82962; 83516; 83540; 83550; 83605; 83735; 83970; 84100; 84133; 84300; 84443; 84484; 84550; 85014; 85018; 85025; 85362; 85378; 85384; 85610; 85730; 86225; 86803; 86850; 86900; 86920; 87040; 87426; 90935; 92523; 92610; 93005; 93306; 93975; 96365; 96372; 96375; 96376; 97162; 97167; 97530; 99291; 99292; J0610; J1644; J1940; J3490; J7030; P9016; Q3014; Q9967